=== PATIENT | female | born 1930 | race Caucasian/White ===

== ENCOUNTER 2018-11-28 20:10 | Inpatient (IN) | payer MEDICARE, OTHER ==
[~2018-11-28] VITALS: Ht 157.5 cm; Wt 58.5 kg
--- NOTE | 2018-11-28 20:19 | NUR ---
ED Nurse Note: Pulled out 125mg solumedrol from another patient's pyxis. Charge nurse ramone aware and notified
[2018-11-28] MEDS ORDERED: Solu-MEDROL 125mg Inj ONE (20:20)
[2018-11-28] MEDS ORDERED: Albuterol/Ipratropium 3ml neb ONE (20:20)
--- NOTE | 2018-11-28 20:20 | NUR ---
ED Nurse Note: RT AT BEDSIDE
[2018-11-28 20:25] VITALS: BP 137/116
--- NOTE | 2018-11-28 20:25 | NUR ---
ED Nurse Note: pt was brought in by squad 8 from home due to respiratory distress. a family member from other place called 911 and pt was unresponsive on the scene. 0.8nitro and narcan was given on the scene. spo2 was 85 on the scene and was put on ambubag
[2018-11-28] MEDS: Albuterol/Ipratropium 3ml neb HHN SCH ×3 (20:26→20:52)
[2018-11-28] MEDS ORDERED: Solu-MEDROL 125mg Inj IVP ONE (20:30)
--- NOTE | 2018-11-28 20:30 | NUR ---
ED Nurse Note: BLOOD SPECIMEN AND CULTURE SENT TO LAB
[2018-11-28] MEDS ORDERED: dilTIAZem HCl 25mg/5ml Inj ONE (20:54)
--- NOTE | 2018-11-28 20:57 | NUR ---
ED Nurse Note: RECEIVED VERBAL ORDER PER ERMD OF 10MG CARDIZEM
[2018-11-28 21:03] LABS: ANION GAP 16 mmol/L (5-15); BLOOD UREA NITROGEN 27 mg/dL (7-18); CALCIUM 9.8 MG/DL (8.5-10.1); CARBON DIOXIDE 24 MMOL/L (21-32); CHLORIDE 106 MMOL/L (98-107); CREATININE 0.8 MG/DL (0.55-1.30); POTASSIUM 4.3 MMOL/L (3.5-5.1); SODIUM 145 MMOL/L (136-145)
[2018-11-28 21:07] LABS: BASOPHILS % (AUTO) 0.3 % (0.0-2.0); HEMATOCRIT 44.1 % (37.0-47.0); HEMOGLOBIN 14.2 G/DL (12.0-16.0); LYMPHOCYTES % (AUTO) 14.3 % (20.0-45.0); MEAN CORPUSCULAR VOLUME 93 FL (80-99); NEUTROPHILS % (AUTO) 77.5 % (45.0-75.0); PLATELET COUNT 340 K/UL (150-450); RED BLOOD COUNT 4.72 M/UL (4.20-5.40); RED CELL DISTRIBUTION WIDTH 14.2 % (11.6-14.8); WHITE BLOOD COUNT 14.9 K/UL (4.8-10.8)
[2018-11-28] MEDS ORDERED: dilTIAZem HCl 25mg/5ml Inj IVP ONE (21:15)
[2018-11-28 21:27] LABS: ALANINE AMINOTRANSFERASE 8 U/L (12-78); ALBUMIN 3.4 G/DL (3.4-5.0); ALBUMIN/GLOBULIN RATIO 0.7 (1.0-2.7); ALKALINE PHOSPHATASE 98 U/L (46-116); ASPARTATE AMINO TRANSFERASE 18 U/L (15-37); BILIRUBIN,TOTAL 0.6 MG/DL (0.2-1.0); CKMB 2.5 NG/ML (0.0-3.6); CREATINE KINASE 70 U/L (26-308)
--- NOTE | 2018-11-28 21:41 | Emergency Room Report ---
History of Present Illness General Chief Complaint: Dyspnea/Respdistress Source: Family Member, EMS Present Illness HPI An 87-year-old female brought in by EMS after increased difficulty with breathing. Patient was noted to have prior history of dementia and is chronically debilitated from this. Patient was noted to have baseline weakness to all extremities and normally has to be turned by caregiver. Patient reportedly had become increasingly shallow with respirations and had increased difficulty with breathing. Patient had prior history of chronic venous stasis ulcers to her lower extremities and had been getting treatment with Unna boot. She had been noted to have increased respiratory distress and was started on supplemental oxygen by paramedics. Patient is normally followed by Dr. Thorpe. Allergies: Coded Allergies: No Known Allergies (Unverified , 11/28/18) Patient History Last Menstrual Period: menopause Now: No Reviewed Nursing Documentation: PMH: Agreed; PSxH: Agreed Nursing Documentation-PMH Hx Cardiac Problems: Yes Hx Hypertension: Yes Hx Diabetes: Yes Physical Exam Vital Signs Date Time Temp Pulse Resp B/P (MAP) Pulse Ox O2 Delivery O2 Flow Rate FiO2 11/28/18 20:15 135 29 173/116 94 Ambu-Bag 11/28/18 20:20 100 11/28/18 20:25 14.0 General Appearance: lethargic, thin, Chronically Ill Eyes: bilateral eye PERRL ENT: dry mucus membranes Neck: limited range of motion Respiratory: accessory muscle use, wheezing Cardiovascular #1: tachycardia, edema Gastrointestinal: normal inspection, soft Genitourinary: normal inspection Musculoskeletal: decreased range of motion Neurologic: motor weakness, other - poor alertness nonverbal Psychiatric: depressed affect Skin: normal color, other - bilateral leg ulcers Procedures Critical Care Time Critical Care Time Patient had a critical medical condition which untreated could potentially result in life or limb threatening injury. Total critical care time excluding procedures approximately 45 minutes. Medical Decision Making Diagnostic Impression: Primary Impression: Dyspnea Additional Impressions: Respiratory failure Venous stasis ulcer Dementia ER Course Patient presented for shortness of breath. Differential included but was not limited to anemia, pneumonia, pneumothorax, myocardial infarction, pericardial effusion, congestive heart failure, acidosis because of complexity of patient's case laboratory testing and imaging studies were ordered.. Chest x-ray 1 view interpreted by me showed normal cardiac size with bilateral infiltrate and vascular congestion. Patient was started on breathing treatments and given IV steroids. She was started on BiPAP. Patient was noted to have elevated white blood count. Dr. Stein was contacted for inpatient management due to covering physician for Dr. Thorpe Labs Test 11/28/18 20:30 White Blood Count 14.9 K/UL (4.8-10.8) Red Blood Count 4.72 M/UL (4.20-5.40) Hemoglobin 14.2 G/DL (12.0-16.0) Hematocrit 44.1 % (37.0-47.0) Mean Corpuscular Volume 93 FL (80-99) Mean Corpuscular Hemoglobin 30.1 PG (27.0-31.0) Mean Corpuscular Hemoglobin Concent 32.3 G/DL (32.0-36.0) Red Cell Distribution Width 14.2 % (11.6-14.8) Platelet Count 340 K/UL (150-450) Mean Platelet Volume 5.4 FL (6.5-10.1) Neutrophils (%) (Auto) 77.5 % (45.0-75.0) Lymphocytes (%) (Auto) 14.3 % (20.0-45.0) Monocytes (%) (Auto) 8.0 % (1.0-10.0) Eosinophils (%) (Auto) 0.0 % (0.0-3.0) Basophils (%) (Auto) 0.3 % (0.0-2.0) Sodium Level 145 MMOL/L (136-145) Potassium Level 4.3 MMOL/L (3.5-5.1) Chloride Level 106 MMOL/L (98-107) Carbon Dioxide Level 24 MMOL/L (21-32) Anion Gap 16 mmol/L (5-15) Blood Urea Nitrogen 27 mg/dL (7-18) Creatinine 0.8 MG/DL (0.55-1.30) Estimat Glomerular Filtration Rate mL/min (>60) Glucose Level 267 MG/DL (74-106) Lactic Acid Level 2.90 mmol/L (0.4-2.0) Calcium Level 9.8 MG/DL (8.5-10.1) Total Bilirubin 0.6 MG/DL (0.2-1.0) Aspartate Amino Transf (AST/SGOT) 18 U/L (15-37) Alanine Aminotransferase (ALT/SGPT) 8 U/L (12-78) Alkaline Phosphatase 98 U/L (46-116) Total Creatine Kinase 70 U/L (26-308) Creatine Kinase MB 2.5 NG/ML (0.0-3.6) Creatine Kinase MB Relative Index 3.5 Troponin I 0.059 ng/mL (0.000-0.056) Pro-B-Type Natriuretic Peptide 1974 pg/mL (0-125) Total Protein 8.3 G/DL (6.4-8.2) Albumin 3.4 G/DL (3.4-5.0) Globulin 4.9 g/dL Albumin/Globulin Ratio 0.7 (1.0-2.7) EKG Diagnostic Results Rate: tachycardiac Rhythm: other - afib rvr ST Segments: no acute changes ASA given to the pt in ED: No Rhythm Strip Diag. Results EP Interpretation: yes Rhythm: no PVC's, no ectopy Last Vital Signs Date Time Temp Pulse Resp B/P (MAP) Pulse Ox O2 Delivery O2 Flow Rate FiO2 11/28/18 21:03 152 137/116 11/28/18 20:52 21 95 Bi-pap 100 11/28/18 20:25 14.0 Status: unchanged Disposition: ADMITTED INPATIENT Condition: Critical Prudencio Clark MD Nov 28, 2018 21:41
[2018-11-28] MEDS ORDERED: cefTRIAXone 1 GM in NS 55 ML IVPB ONE (22:00)
[2018-11-28 22:10] LABS: APPEARANCE,URINE CLEAR; BILIRUBIN, URINE NEGATIVE (NEGATIVE); COLOR,URINE PALE YELLOW; GLUCOSE, URINE (UA) 4+ (NEGATIVE); KETONES,URINE 3+ (NEGATIVE); LEUKOCYTE ESTERASE ,URINE 2+ (NEGATIVE); NITRITE,URINE NEGATIVE (NEGATIVE); PH,URINE 5 (4.5-8.0); PROTEIN,URINE 2+ (NEGATIVE); UROBILINOGEN,URINE NORMAL MG/DL (0.0-1.0)
[2018-11-28] MEDS ORDERED: Digoxin 0.5mg/2ml Inj IVP ONE (22:15)
--- NOTE | 2018-11-28 22:20 | NUR ---
ED Nurse Note: INFORMED ERMD BP WAS 99/73 WITH HEART OF 135 PER ERMD INTIATE DIGOXIN LOADING DOSE PRIOR TO CARDIZEM. CARDIZEM WAS THEN STARTED AT 2220. BP 151/85 WITH HEART OF 132
[2018-11-28 22:35] VITALS: BP 119/66
--- NOTE | 2018-11-28 22:35 | NUR ---
ED Nurse Note: AFTER 15 MIN PT BP 119/66 WITH HEART RATE OF 131. TITRATED CARDIZEM PER PROTOCOL. ERMD AWARE.
[2018-11-28] MEDS ORDERED: Enalaprilat 2.5mg/2ml Inj IV PRN (22:45)
[2018-11-28] MEDS ORDERED: Albuterol/Ipratropium 3ml neb HHN PRN (22:45)
[2018-11-28] MEDS ORDERED: Metoprolol 5mg/5ml Inj IVP PRN (22:45)
[2018-11-28] MEDS ORDERED: Nitroglycerin Subl 0.4mg tab SL PRN (22:45)
[2018-11-28] MEDS ORDERED: Morphine Sulfate 2mg/ml Inj(IV/IM USE ONLY) IVP PRN (22:45)
[2018-11-28] MEDS ORDERED: dilTIAZem HCl 25mg/5ml Inj IV PRN (22:45)
--- NOTE | 2018-11-28 22:50 | NUR ---
ED Nurse Note: PT BP 121/72 HR 130, CARDIZEM TITRATED, ERMD AWARE.
--- NOTE | 2018-11-28 23:05 | NUR ---
ED Nurse Note: ER WCP UPLOADED
--- NOTE | 2018-11-28 23:21 | NUR ---
ED Nurse Note: PT BP AT 126/68 WITH HR OF 97, MAINTAINING CARDIZEM, ERMD AWARE
--- NOTE | 2018-11-28 23:27 | NUR ---
ED Nurse Note: INFORMED ERMD THAT LACTIC ACID REFLEX CAME BACK 3.80. AWAITING FURTHER ORDERS. WILL CONTINUE TO MONITOR PT.
--- NOTE | 2018-11-28 23:50 | NUR ---
ED Nurse Note: PT WAS TRANSFERRED TO ICU WITH RD ARRIAZA AND CHLOÉ JACKSON. PT WAS ACCOMPANIED WITH [employer] APPLICATOR. PT CURRENTLY ON CARDIZEM DRIP PT IS AOX0 PT ON NON REBREATHER. PT VSS STABLE AT THE MOMENT
--- NOTE | 2018-11-28 23:54 | NUR ---
NURSE NOTES: RECEIVED PATENT VIA GURNEY FROM SOFIYAER NURSE. [id number] -FEMALE ADMITTED UNDER SERVICES BY DR. AMIN. PATIENT LETHARGIC, NO ANSWERING TO QUESTION AT THIS TIME, NOTED MOANING SOUND, RESPIRATION REGULAR ON BIPAP I/E 20/5, RATE 14, FIO2 70%, O2 SATURATION OVER 97% NOTED, ABDOMEN FLAT, SOFT, NO BOWEL MOVEMENT STATUS, PERIPHERAL LINE TO RIGHT AC 20G INTACT AND PATENT, ON CARDIZEM DRIP 7.5MG/HR, OPENED ULCER WITHOUT DISCHARGE TO BOTH LOWER LEGS STATUS, MADE LOWER BED AND PROVIDED CALL LIGHT WITHIN REACH, WILL CONTINUE TO MONITOR.
[2018-11-29] VITALS (26 sets, daily range): BP systolic 91–157; BP diastolic 54–103
--- NOTE | 2018-11-29 01:00 | NUR ---
NURSE NOTES: PATIENT ASLEEP STATUS, HEART RATE 90'S/MIN SINUS RHYTHM NOTED, NO PAIN OR SOB NOTED AT THIS TIME.
--- NOTE | 2018-11-29 01:05 | NUR ---
RESPIRATORY NOTE: Received pt in ICU from ED on BiPAP 20/5, backup rate 14, 70%.Pt on a Facial mask, skin intact, no redness/breakdowns noted. Foam tape applied on pt's nosebridge/cheeks/chin to prevent any mask irritations. Pt asleep/disoriented. B/S margoth. crackles, nonproductive cough. BiPAP plugged into red outlet. Pt comfortable in current settings, in no apparent distress at this time. Will continue to monitor pt.
--- NOTE | 2018-11-29 01:56 | NUR ---
NURSE NOTES: PATIENT AWOKE, DENIED PAIN AT THIS TIME, WILL CONTINUE TO MONITOR.
--- NOTE | 2018-11-29 03:50 | NUR ---
NURSE NOTES: MORNING CARE WAS DONE, PURE WICK EXTERNAL CATH STATUS, YELLOW URINE OUTED.
--- NOTE | 2018-11-29 05:05 | NUR ---
NURSE NOTES: CHANGED BIPAP SETTING FIO2 60% BY RT AT 0500AM, NO SOB NOTED, O2 SATURATION 100% NOTED, WILL CONTINUE TO MONITOR.
[2018-11-29 05:42] LABS: HEMATOCRIT 44.4 % (37.0-47.0); HEMOGLOBIN 14.1 G/DL (12.0-16.0); MEAN CORPUSCULAR VOLUME 94 FL (80-99); PLATELET COUNT 319 K/UL (150-450); RED BLOOD COUNT 4.72 M/UL (4.20-5.40); RED CELL DISTRIBUTION WIDTH 14.3 % (11.6-14.8); WHITE BLOOD COUNT 7.8 K/UL (4.8-10.8)
[2018-11-29 05:53] LABS: INR 1.3 (0.9-1.1)
[2018-11-29 06:19] LABS: ALANINE AMINOTRANSFERASE 11 U/L (12-78); ALBUMIN 3.1 G/DL (3.4-5.0); ALBUMIN/GLOBULIN RATIO 0.7 (1.0-2.7); ALKALINE PHOSPHATASE 86 U/L (46-116); ANION GAP 21 mmol/L (5-15); ASPARTATE AMINO TRANSFERASE 15 U/L (15-37); BILIRUBIN,TOTAL 0.6 MG/DL (0.2-1.0); BLOOD UREA NITROGEN 29 mg/dL (7-18); CALCIUM 10.2 MG/DL (8.5-10.1); CARBON DIOXIDE 21 MMOL/L (21-32); CHLORIDE 106 MMOL/L (98-107); CHOLESTEROL 176 MG/DL (< 200); CREATININE 0.8 MG/DL (0.55-1.30); HDL CHOLESTEROL 63 MG/DL (40-60); POTASSIUM 3.7 MMOL/L (3.5-5.1); SODIUM 148 MMOL/L (136-145); TRIGLYCERIDES 64 MG/DL (30-150)
--- NOTE | 2018-11-29 06:40 | NUR ---
NURSE NOTES: NO PAIN OR DISTRESS NOTED AT THIS SHIFT.
--- NOTE | 2018-11-29 07:27 | NUR ---
HAND-OFF: Report given to RD RWOELL.
--- NOTE | 2018-11-29 07:28 | NUR ---
RESPIRATORY NOTE: pt on bipap with settings of 20/5, fio2 60% with HR and saturation WNL. pt is in no apparent resp distress at this time and is using a partial face mask with no redness or skin breakdown visible around facial or neck area. bipap is plugged into the red outlet with alarms set and audible. will cont to monitor.
--- NOTE | 2018-11-29 07:40 | NUR ---
NURSE NOTES: Received the patient from RD Tejeda. Patient is opens eyes to shaking, lethargic, unable to follow commands. Patient on Bipap 20/5, rate 14, FIO2 60%, O2 sat 99%. SR-ST with HR 90-100s noted. No acute distress noted. wound dressings on bilateral legs intact, clean and dry. External cath intact, draining yellow urine. Right AC 20G intact. Bed in lowest position, locked, side rails upx3. Bed alarms on. call light within reach. Will continue to monitor.
--- NOTE | 2018-11-29 08:08 | NUR ---
RESPIRATORY NOTE: placed pt on VM 40%. RN, notified
--- NOTE | 2018-11-29 08:53 | NUR ---
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 ALOC VS: BP 173/116, P 153, T 98.2, RR 35, SpO2 94 on Bi-pap 14.0 L FiO2 100 WBC 14.9, LACTIC ACID 3.80, Na 148, BUN 29, Glucose 311, Ca 10.2, Urine Bacteria MODERATE, Urine Ketones 3+ IS:SOLU-MEDROL 125mg IVP ALBUTEROL 3ml HHN CARDIZEM 10mg IVP LASIX 20mg IV DILTIAZEM /D5 125ml IV CEFTRIAXONE 55ml IVPB DIGOXIN 0.5mg IVP ADMITTED TO ICU DC PLAN: TO BE DETERMINED ON CARE NEEDED WHEN DC
[2018-11-29] MEDS: Pantoprazole Inj IVP SCH (09:17)
[2018-11-29] MEDS: Digoxin 0.5mg/2ml Inj IVP SCH (09:18)
[2018-11-29] MEDS ORDERED: METOPROLOL SUCC25 MG ORAL (09:57)
[2018-11-29] MEDS ORDERED: TRAZODONE HCL300 MG ORAL (09:57)
[2018-11-29] MEDS ORDERED: DIGOXIN125 MCG ORAL (09:57)
[2018-11-29] MEDS ORDERED: TRADJENTA5 MG PO (09:57)
[2018-11-29] MEDS ORDERED: NAMZARIC 28 MG1 EACH PO (09:57)
[2018-11-29] MEDS ORDERED: INVOKANA100 MG PO (09:57)
[2018-11-29] MEDS ORDERED: METFORMIN HCL850 M1 ORAL (09:57)
[2018-11-29] MEDS ORDERED: ASPIRIN-LOW81 MG ORAL (09:57)
--- NOTE | 2018-11-29 10:02 | Diagnostic Imaging Report ---
Indication: Shortness of breath Technique: One view of the chest Comparison: 11/28/2018 Findings: There is slightly increased dense left perihilar consolidation. There is suggestion of developing patchy parenchymal opacities at the right mid and lower lung. Generalized interstitial prominence and central bronchial wall thickening persist. Impression: Worsening left lung infiltrate, likely pneumonia Suspect developing patchy right basilar infiltrates
--- NOTE | 2018-11-29 10:12 | Consultation ---
History of Present Illness General Date patient seen: Nov 29, 2018 Chief Complaint: Dyspnea/Respdistress Present Illness HPI 87 year old female with hx of Afib, dementia, bed bound brought in by EMS with CC of difficulty with breathing. Patient reportedly had increasingly shallow respirations. Her systolic Blood pressure was 180. Pt was in respiratory failure on arrival to ER and was put on BIPAP. She had rapid afib and received IV digoxin and was started on Cardizem drip. Allergies: Coded Allergies: No Known Allergies (Unverified , 11/28/18) Medication History Scheduled Aspirin (Aspirin EC), 81 MG ORAL EVERY OTHER DAY, (Reported) Canagliflozin (Invokana), 100 MG PO DAILY, (Reported) Digoxin* (Digoxin*), 125 MCG ORAL DAILY, (Reported) Linagliptin (Tradjenta), 2.5 MG PO DAILY, (Reported) Metformin Hcl* (Metformin Hcl*), 850 MG ORAL DAILY, (Reported) Metoprolol Succinate* (Metoprolol Succinate*), 25 MG ORAL DAILY, (Reported) Trazodone Hcl (Trazodone Hcl), 100 MG ORAL BEDTIME, (Reported) Miscellaneous Medications Memantine HCl/Donepezil HCl (Namzaric 28 mg-10 mg Capsule), 1 EACH PO, (Reported ) Patient History Healthcare decision maker Resuscitation status Full Code Advanced Directive on File Past Medical/Surgical History Past Medical/Surgical History: (1) Alzheimer's dementia (2) Debility (3) Severe protein-calorie malnutrition Review of Systems All Other Systems: negative except mentioned in HPI Physical Exam General Appearance: cachetic Lines, tubes and drains: peripheral HEENT: normocephalic, anicteric Neck: non-tender, normal alignment Respiratory/Chest: chest wall non-tender, rhonchi - left, rhonchi - right Cardiovascular/Chest: normal peripheral pulses, normal rate Abdomen: normal bowel sounds, non tender Extremities: normal range of motion, normal capillary refill Skin Exam: normal pigmentation, palled, other - stasis ulcers in lower extremities Last 24 Hour Vital Signs Date Time Temp Pulse Resp B/P (MAP) Pulse Ox O2 Delivery O2 Flow Rate FiO2 11/29/18 09:18 104 11/29/18 08:00 97.6 105 18 145/88 (107) 100 11/29/18 08:00 106 11/29/18 08:00 70 11/29/18 08:00 Bi-pap 11/29/18 07:27 99 21 100 Facial 60 11/29/18 07:00 99 16 107/78 (88) 100 11/29/18 06:00 99 25 113/70 (84) 100 11/29/18 05:08 99 19 100 Facial 60 11/29/18 05:00 99 25 91/60 (70) 100 11/29/18 04:00 70 11/29/18 04:00 98.3 97 20 113/68 (83) 100 11/29/18 04:00 Bi-pap 11/29/18 03:59 94 11/29/18 03:01 97 20 100 Facial 70 11/29/18 03:00 97 20 112/65 (81) 100 11/29/18 02:00 95 21 108/67 (81) 100 11/29/18 01:30 96 18 119/78 (92) 100 11/29/18 01:03 95 18 100 Facial 70 11/29/18 01:00 95 18 124/79 (94) 100 11/29/18 00:30 95 17 113/67 (82) 100 11/29/18 00:00 97.6 97 22 133/103 (113) 97 11/29/18 00:00 Bi-pap 11/28/18 23:54 Bi-pap 11/28/18 23:54 100 11/28/18 23:54 70 11/28/18 23:50 98.3 97 20 127/94 97 Bi-pap 14.0 100 11/28/18 23:30 97 19 98 Facial 70 11/28/18 22:35 98.2 131 25 119/66 97 14.0 100 11/28/18 22:14 133 11/28/18 22:08 133 137/116 11/28/18 21:48 133 35 94 Facial 100 11/28/18 21:40 133 25 93 Bi-pap 100 11/28/18 21:03 152 137/116 11/28/18 20:52 152 21 95 Bi-pap 100 11/28/18 20:45 152 21 95 Bi-pap 100 11/28/18 20:34 151 27 94 Bi-pap 100 11/28/18 20:32 156 27 94 Bi-pap 100 11/28/18 20:25 153 35 137/116 94 Bi-pap 14.0 100 11/28/18 20:25 153 35 Bi-pap 14.0 100 11/28/18 20:23 137 31 96 Bi-pap 100 11/28/18 20:22 137 31 Bi-pap 100 11/28/18 20:20 153 31 95 Facial 100 11/28/18 20:15 135 29 173/116 94 Ambu-Bag Intake and Output 11/28/18 11/29/18 19:00 07:00 Intake Total 55 ml Output Total 300 ml Balance -245 ml Intake Oral 0 ml IV Total 55 ml Output Urine Total 300 ml # Voids 1 # Bowel Movements 1 Laboratory Tests Test 11/28/18 20:21 11/28/18 20:30 11/28/18 21:50 11/28/18 22:25 Arterial Blood pH 7.320 (7.350-7.450) Arterial Blood Partial Pressure CO2 41.7 mmHg (35.0-45.0) Arterial Blood Partial Pressure O2 131.8 mmHg (75.0-100.0) H Arterial Blood HCO3 21.0 mmol/L (22.0-26.0) L Arterial Blood Oxygen Saturation 98.1 % (95-100) Arterial Blood Base Excess -4.8 (-2-2) L Meir Test Positive White Blood Count 14.9 K/UL (4.8-10.8) H Red Blood Count 4.72 M/UL (4.20-5.40) Hemoglobin 14.2 G/DL (12.0-16.0) Hematocrit 44.1 % (37.0-47.0) Mean Corpuscular Volume 93 FL (80-99) Mean Corpuscular Hemoglobin 30.1 PG (27.0-31.0) Mean Corpuscular Hemoglobin Concent 32.3 G/DL (32.0-36.0) Red Cell Distribution Width 14.2 % (11.6-14.8) Platelet Count 340 K/UL (150-450) Mean Platelet Volume 5.4 FL (6.5-10.1) L Neutrophils (%) (Auto) 77.5 % (45.0-75.0) H Lymphocytes (%) (Auto) 14.3 % (20.0-45.0) L Monocytes (%) (Auto) 8.0 % (1.0-10.0) Eosinophils (%) (Auto) 0.0 % (0.0-3.0) Basophils (%) (Auto) 0.3 % (0.0-2.0) Sodium Level 145 MMOL/L (136-145) Potassium Level 4.3 MMOL/L (3.5-5.1) Chloride Level 106 MMOL/L (98-107) Carbon Dioxide Level 24 MMOL/L (21-32) Anion Gap 16 mmol/L (5-15) H Blood Urea Nitrogen 27 mg/dL (7-18) H Creatinine 0.8 MG/DL (0.55-1.30) Estimat Glomerular Filtration Rate mL/min (>60) Glucose Level 267 MG/DL (74-106) H Lactic Acid Level 2.90 mmol/L (0.4-2.0) H 3.80 mmol/L (0.66-2.22) H Calcium Level 9.8 MG/DL (8.5-10.1) Total Bilirubin 0.6 MG/DL (0.2-1.0) Aspartate Amino Transf (AST/SGOT) 18 U/L (15-37) Alanine Aminotransferase (ALT/SGPT) 8 U/L (12-78) L Alkaline Phosphatase 98 U/L (46-116) Total Creatine Kinase 70 U/L (26-308) Creatine Kinase MB 2.5 NG/ML (0.0-3.6) Creatine Kinase MB Relative Index 3.5 Troponin I 0.059 ng/mL (0.000-0.056) Pro-B-Type Natriuretic Peptide 1974 pg/mL (0-125) H Total Protein 8.3 G/DL (6.4-8.2) H Albumin 3.4 G/DL (3.4-5.0) Globulin 4.9 g/dL Albumin/Globulin Ratio 0.7 (1.0-2.7) L Urine Color Pale yellow Urine Appearance Clear Urine pH 5 (4.5-8.0) Urine Specific Glidden 1.015 (1.005-1.035) Urine Protein 2+ (NEGATIVE) H Urine Glucose (UA) 4+ (NEGATIVE) H Urine Ketones 3+ (NEGATIVE) H Urine Blood 2+ (NEGATIVE) H Urine Nitrite Negative (NEGATIVE) Urine Bilirubin Negative (NEGATIVE) Urine Urobilinogen Normal MG/DL (0.0-1.0) Urine Leukocyte Esterase 2+ (NEGATIVE) H Urine RBC 2-4 /HPF (0 - 2) H Urine WBC 5-10 /HPF (0 - 2) H Urine Squamous Epithelial Cells Few /LPF (NONE/OCC) Urine Bacteria Moderate /HPF (NONE) H Urine Yeast Few /HPF (NONE) H Test 11/29/18 03:50 11/29/18 06:44 White Blood Count 7.8 K/UL (4.8-10.8) Red Blood Count 4.72 M/UL (4.20-5.40) Hemoglobin 14.1 G/DL (12.0-16.0) Hematocrit 44.4 % (37.0-47.0) Mean Corpuscular Volume 94 FL (80-99) Mean Corpuscular Hemoglobin 29.9 PG (27.0-31.0) Mean Corpuscular Hemoglobin Concent 31.7 G/DL (32.0-36.0) L Red Cell Distribution Width 14.3 % (11.6-14.8) Platelet Count 319 K/UL (150-450) Mean Platelet Volume 5.9 FL (6.5-10.1) L Neutrophils (%) (Auto) % (45.0-75.0) Lymphocytes (%) (Auto) % (20.0-45.0) Monocytes (%) (Auto) % (1.0-10.0) Eosinophils (%) (Auto) % (0.0-3.0) Basophils (%) (Auto) % (0.0-2.0) Prothrombin Time 13.5 SEC (9.30-11.50) H Prothromb Time International Ratio 1.3 (0.9-1.1) H Activated Partial Thromboplast Time 27 SEC (23-33) Sodium Level 148 MMOL/L (136-145) H Potassium Level 3.7 MMOL/L (3.5-5.1) Chloride Level 106 MMOL/L (98-107) Carbon Dioxide Level 21 MMOL/L (21-32) Anion Gap 21 mmol/L (5-15) H Blood Urea Nitrogen 29 mg/dL (7-18) H Creatinine 0.8 MG/DL (0.55-1.30) Estimat Glomerular Filtration Rate mL/min (>60) Glucose Level 311 MG/DL (74-106) H Calcium Level 10.2 MG/DL (8.5-10.1) H Total Bilirubin 0.6 MG/DL (0.2-1.0) Aspartate Amino Transf (AST/SGOT) 15 U/L (15-37) Alanine Aminotransferase (ALT/SGPT) 11 U/L (12-78) L Alkaline Phosphatase 86 U/L (46-116) Troponin I 0.070 ng/mL (0.000-0.056) C-Reactive Protein, Quantitative 33.3 mg/dL (0.00-0.90) H Pro-B-Type Natriuretic Peptide 3266 pg/mL (0-125) H Total Protein 7.7 G/DL (6.4-8.2) Albumin 3.1 G/DL (3.4-5.0) L Globulin 4.6 g/dL Albumin/Globulin Ratio 0.7 (1.0-2.7) L Triglycerides Level 64 MG/DL (30-150) Cholesterol Level 176 MG/DL (< 200) LDL Cholesterol 88 mg/dL (<100) HDL Cholesterol 63 MG/DL (40-60) H Cholesterol/HDL Ratio 2.8 (3.3-4.4) L Thyroid Stimulating Hormone (TSH) 0.700 uiU/mL (0.358-3.740) Lactic Acid Level 2.40 mmol/L (0.4-2.0) H Microbiology Date/Time Source Procedure Growth Status 11/28/18 20:58 Nasal Nares Influenza Types A,B Antigen (OG) - Final Complete 11/28/18 20:58 Rectum Received Height (Feet): 5 Height (Inches): 2.00 Weight (Pounds): 124 Medications Current Medications Medications (Trade) Dose Ordered Sig/Harshil Route PRN Reason Start Time Stop Time Status Last Admin Dose Admin Acetaminophen (Tylenol) 650 mg Q4H PRN ORAL FEVER 11/28/18 22:45 12/28/18 22:44 Albuterol/ Ipratropium (Albuterol/ Ipratropium) 3 ml Q4H PRN HHN Shortness of Breath 11/28/18 22:45 12/03/18 22:44 Digoxin (Lanoxin) 0.25 mg DAILY IVP 11/29/18 09:00 12/29/18 08:59 11/29/18 09:18 Diltiazem HCl (Cardizem) 10 mg Q1H PRN IV heart rate more than 120, 11/28/18 22:45 12/28/18 22:44 Enalaprilat (Vasotec) 2.5 mg Q6H PRN IV sbp more than 160 11/28/18 22:45 12/28/18 22:44 Metoprolol Tartrate (Lopressor) 5 mg Q1H PRN IVP heart rate more than 140 11/28/18 22:45 12/28/18 22:44 Morphine Sulfate (Morphine Sulfate) 2 mg Q4H PRN IVP severe Pain (Pain Scale 7-10) 11/28/18 22:45 12/05/18 22:44 Nitroglycerin (Ntg) 0.4 mg Q5M PRN SL Prn Chest Pain 11/28/18 22:45 12/28/18 22:44 Ondansetron HCl (Zofran) 4 mg Q6H PRN IVP Nausea & Vomiting 11/28/18 22:45 12/28/18 22:44 Pantoprazole (Protonix) 40 mg DAILY IVP 11/29/18 09:00 12/29/18 08:59 11/29/18 09:17 Temazepam (Restoril) 15 mg HSPRN PRN ORAL Insomnia 11/28/18 22:45 12/05/18 22:44 Assessment/Plan Problem List: (1) Acute respiratory failure ICD Codes: J96.00 - Acute respiratory failure, unspecified whether with hypoxia or hypercapnia SNOMED: 68176761 (2) Hypertensive emergency ICD Codes: I16.1 - Hypertensive emergency SNOMED: 511956283859446 (3) Rapid atrial fibrillation ICD Codes: I48.91 - Unspecified atrial fibrillation SNOMED: 470632275 (4) Severe protein-calorie malnutrition ICD Codes: E43 - Unspecified severe protein-calorie malnutrition SNOMED: 633783784, 791505503, 670159370 (5) At high risk for aspiration ICD Codes: Z91.89 - Other specified personal risk factors, not elsewhere classified SNOMED: 731998836 (6) Dementia ICD Codes: F03.90 - Unspecified dementia without behavioral disturbance SNOMED: 62112115 (7) Alzheimer's dementia ICD Codes: G30.9 - Alzheimer's disease, unspecified; F02.80 - Dementia in other diseases classified elsewhere without behavioral disturbance SNOMED: 63607762 (8) Venous stasis ulcer ICD Codes: I83.009 - Varicose veins of unspecified lower extremity with ulcer of unspecified site; L97.909 - Non-pressure chronic ulcer of unspecified part of unspecified lower leg with unspecified severity SNOMED: 114766973, 97413517, 99776509 (9) Debility ICD Codes: R53.81 - Other malaise SNOMED: 88602622 Assessment/Plan NPO titrate bipap or venturi mask check cXR an BNP in am check dig Level echocardiogram swallow study dvt prophylaxis wound care Corey Salmon MD Nov 29, 2018 10:12
[2018-11-29] MEDS ORDERED: Dextrose 50% 25ml Syringe IV PRN (10:15)
--- NOTE | 2018-11-29 10:15 | NUR ---
NURSE NOTES: Dr. Salmon in facility to see the patient . Patient is asleep, easily arousable. Family at bedside. Keep NPO until ST eval. plan of care discussed with daughter, chip.
--- NOTE | 2018-11-29 10:28 | NUR ---
RADIOLOGY DEPT., CHEST X-RAY DONE.-P.DYE
--- NOTE | 2018-11-29 10:32 | Diagnostic Imaging Report ---
Indication: Shortness of breath Technique: One view of the chest Comparison: none Findings: There is infiltrate in the left perihilar and infrahilar region. The left hemidiaphragm is elevated. There is generalized interstitial prominence, acuity indeterminate. The heart size is normal. Impression: Left perihilar and basilar consolidation, likely pneumonia Acuity indeterminate diffuse interstitial disease bilaterally
[2018-11-29] MEDS: NovoLOG Insulin Flexpen SUBQ SCH ×3 (11:01→21:14)
--- NOTE | 2018-11-29 12:00 | NUR ---
NURSE NOTES: Patient is turned and repositioned. wound dressing intact, clean and dry. Patient is awake, resting in bed. On 2L O2 via NC. No acute distress noted.
--- NOTE | 2018-11-29 13:19 | History & Physical ---
History and Physical History & Physicial Dictated for Int Med-Dr Stein no. [id number]. Bhanu Valentine MD Nov 29, 2018 13:19
--- NOTE | 2018-11-29 14:00 | NUR ---
NURSE NOTES: patient resting in bed with eyes closed. No acute distress noted. speech therapist at bedside for ST kinney.
--- NOTE | 2018-11-29 14:55 | NUR ---
NURSE NOTES: Notified Dr. Salmon that pt did not pass swallow eval per ST. Okay to start IVF.
[2018-11-29] MEDS: D5 1/2NS 1,000 ML IV SCH (15:07)
--- NOTE | 2018-11-29 15:15 | NUR ---
NURSE NOTES: Patient seen by wound care nurse and Dr. Campbell. Dressings changed. No new orders at this time. Air mattress ordered.
--- NOTE | 2018-11-29 15:35 | NUR ---
NURSE NOTES:WOUND CARE NOTES:Pt presented on admission with dry ulcers R and L lower ext. On lateral RLE small dry eschar noted (L)0.5cm x (W)0.4cm.Inferior but in close proximity second linear shaped ulcer that is loyda pink but dry .Edges adherent to base of wound (L)5.5cm x (W)0.9cm. No edema,erythema or elevation in skin temp periwound. Dry peeling skin dorsal aspect of R foot. Stable dry brown eschar noted to medial R heel (L)1.5cm x (W)1cm.No fluctuance erythema or induration periwound. Resolving linear shaped ulcer medial LLE .Base of is pink with small dry brown eschar medially.NO erythema edema or elevation in skin temp at site of wound. L heel is soft,pink but blanchable.Sacrum and all oother pressure points without evidence of skin breakdown. Tx.Plan:Apply Calazime Paste to both lower ext. Cover ulcers and heels with ABD pads .Wrap with Kerlix from base of toes to 1inch below knees. Change every other day and prn. Apply Moisture BArrier to Sacrum.Cover with Optifoam drsg .Change every 3 days and prn. APM/JAY Mattress. Reposition at least every 2hours or as tolerated. Off-Load Heels with Pillow.
--- NOTE | 2018-11-29 16:38 | NUR ---
ST NOTE:BEDSIDE SWALLOW EVAL RECEIVED BEDSIDE SWALLOW EVAL ORDER CHART REVIEWED PRIOR THE EVALUATION. REFERRED BY DR. REED AMEZCUA PT IS 87-YEAR-OLD STATELESS-SPEAKING FEMALE WHO WAS ADMITTED DUE TO RESPIRATORY FAILURE AND REQUIRED BIPAP. DYSPHAGIA RISK FACTORS: ADVANCED AGE, ACUTE RESP FAILURE, DEMENTIA, CARDIAC DISORDERS, HTN, DMII. PER CXR: WORSENING L LUNG INFILTRATE, LIKELY PNA. SUSPECTED DEVELOPING PATCHY R BASILAR INFILTRATE PLOF: PT LIVES HOME. PER PT'S DAUGHTER, PT WAS ON BLEND DIET AT HOME AND EATING WELL BUT NOTED HAS SOME COUGHING DURING MEALS. CURRENTLY, PT IS FULL CODE. PER DAUGHTER, NOT CONSIDER ANY ARTIFICIAL FEEDING, INCLUDING FEEDING TUBES(NO G-TUBE) CURRENT STATUS: PT SEEN AT BEDSIDE IN PM. AWAKE, FOLLOWS SIMPLE DIRECTIONS INCONSISTENTLY, PT WITH NC(2L), OXYGEN LEVEL: 95%, RR: 22 PT'S DAUGHTER IS AT BEDSIDE. ADJUST PT AT UPRIGHT POSITION. GIVEN PO TRIALS: NECTAR THICK LIQUIDS X 2 TSP INITIAL IMPRESSION: PROBABLE MODERATE TO SEVERE OR WORSENED OROPHARYNGEAL DYSPHAGIA MISSING FEW TEETH MODERATELY INCREASED ORAL TRANSIT TIME AND OROPHARYNGEAL TRANSIT TIME REDUCED LARYNGEAL ELEVATION, DELAYED COUGHING WAS NOTED WITH THE 2 PO TRIALS. PT DESATURATED TO 88-89%. GIVEN PT HAS DEMENTIA AND ACUTE RESP FAILURE, PT IS AT HIGH RISK FOR CHRONIC ASPIRATION. DISCUSSED WITH PT'S DAUGHTER RE: BEDSIDE SWALLOW EVAL RESULTS AND RECOMMENDATIONS. EXPLAINED TO THE DAUGHTER THAT PT IS AT HIGH RISK FOR ASPIRATION. PER DAUGHTER, NOT CONSIDER ANY TUBE FEEDING(NGT AND PEG PLACEMENT); AND WOULD LIKE PT TO EAT/DRINK BY MOUTH. RECOMMENDATIONS: 1. DUE TO PT'S OVERALL WEAKNESS AND RESP STATUS, CONTINUE NPO FOR NOW. 2. WILL DISCUSS AND RE-ASSESS PT'S SWALLOWING FUNCTION(PO FOR COMFORT FEEDING) 3. CONSIDER MODIFIED BARIUM SWALLOW STUDY(PER DAUGHTER, DECLINES TO DO IT PEG IS NOT AN OPTION). DR. REED AMEZCUA APPROVED THE MBSS. 4. REFER PT TO SOCIAL SERVICE. 5. SWALLOW TX AND MANAGEMENT. 6. CONSIDER COMFORT FEEDING D/W PT'S DAUGHTER AND RNGUILLERMINA. POSTED NPO SIGN.
--- NOTE | 2018-11-29 17:20 | NUR ---
NURSE NOTES: patient was turned and repositioned. Oral care and allen care provided. Patient resting in bed comfortably. VSS.
--- NOTE | 2018-11-29 19:19 | NUR ---
HAND-OFF: Report given to RD Cerrato.
--- NOTE | 2018-11-29 19:26 | NUR ---
NURSE NOTES: pt orally intubated -vent o2 sat 100 o/o sadated with versed drip at 5mcg/hr open eyes touch but do not follow command IV INFUSING RT FEMORAL TLC DERSSING SITE DRUG AND INTACT ON CLARENCE SOFT WRIST RESTRAINT NON COMPPLAINTS REPOSITION AND SUCTION
--- NOTE | 2018-11-29 19:30 | NUR ---
NURSE NOTES:Received pt appeared fatigue but opened eyes to verbal and tactile stimulation, attempted to follow simple commands but weak, SR on the monitor, bp stable afebrile, on 02 at 2l/nc 02 sat >92%, Purewick to suction with moderate amt of melissa yellow urine. IVF D51/2NS at 35ml/hr infusing well per Rt Ac. site atraumatic. Pt with bilateral lower legs venous stacis wound covered with drsg dry and intact. Will continue to monitor.
[2018-11-29] MEDS: TraZODone 100mg tab ORAL SCH ×2 (21:00→21:05)
--- NOTE | 2018-11-29 21:00 | NUR ---
NURSE NOTES:Oral care and turned to sides for comfort.
--- NOTE | 2018-11-29 21:00 | History and Physical Report ---
DATE OF ADMISSION: 11/28/2018 CHIEF COMPLAINT: The patient is an 87-year-old white female, who presents with a chief complaint of respiratory failure. HISTORY OF PRESENT ILLNESS: The patient herself is unable to contribute much to the history and physical. Much of the history and physical is obtained from the patient's chart. Apparently, the patient has become increasingly short of breath over the last couple of days. EMS was called. The patient is transferred to [facility] for respiratory distress to rule out pneumonia. REVIEW OF SYSTEMS: Unable to assess secondary to the patient's mental status. PAST MEDICAL HISTORY: Significant for, 1. Type 2 diabetes. 2. Hypertension. 3. Atrial fibrillation. 4. Alzheimer's dementia. PAST SURGICAL HISTORY: The patient denies. CURRENT MEDICATIONS: 1. Aspirin 81 mg one tablet p.o. daily. 2. Tradjenta 2.5 mg p.o. daily. 3. Metoprolol 25 mg p.o. daily. 4. Namzaric 28/10 one tablet p.o. daily. 5. Invokana 100 mg p.o. daily. 6. Metformin 850 mg p.o. daily. 7. Digoxin 0.125 mg p.o. daily. 8. Trazodone 100 mg p.o. daily. ALLERGIES: No known drug allergies. SOCIAL HISTORY: The patient is single and lives with her family. The patient denies tobacco or alcohol use. PHYSICAL EXAMINATION: VITAL SIGNS: Temperature 98.1, respirations 22, pulse 116, and blood pressure 145/88. GENERAL: The patient is a thin-appearing frail white female, in no apparent distress. HEENT: Eyes, pupils are equal and responsive to light and accommodation. Extraocular movements are intact. NECK: Supple without lymphadenopathy. CHEST: Decreased breath sounds at bilateral bases. Otherwise, clear to auscultation without wheezes or rales. CARDIOVASCULAR: Tachycardic, regular rate. S1 and S2 are normal without murmurs, rubs, or gallops. ABDOMEN: Soft, nontender, and nondistended. Positive bowel sounds. No evidence of hepatosplenomegaly. Currently, no rebound or guarding noted. EXTREMITIES: Negative for clubbing, cyanosis, or edema. RECTAL/GENITAL: Not performed. NEUROLOGIC: Cranial nerves II through XII are grossly intact without focal deficits. LABORATORY STUDIES: WBC 14.9, hemoglobin 14.2, hematocrit 44.1, and platelets 240,000. Sodium 145, potassium 4.3, chloride 106, CO2 24, BUN 27, creatinine 0.8, and glucose 267. Troponin 0.059. Urinalysis showed 2+ protein, 4+ glucose, 3+ ketones, and 2+ blood with 5 to 10 wbc. Chest x-ray was reported as left perihilar and basilar consolidation consistent with pneumonia. ASSESSMENT: This is an 87-year-old white female. 1. Respiratory failure. 2. Pneumonia. 3. Atrial fibrillation. 4. Diabetes type 2. 5. Hypertension. 6. Alzheimer's dementia. TREATMENT: 1. Pneumonia/respiratory failure. A Pulmonary consultation has been obtained with Dr. Corey Salmon. The patient has been started empirically on ceftriaxone. The patient was previously on BiPAP, however is now, tolerating nasal cannula. 2. Atrial fibrillation. Continue digoxin as above. 3. Diabetes type 2. The patient has been started on NovoLog sliding scale. 4. Hypertension. The patient is currently hypotensive. 5. Alzheimer's dementia. Bhanu Valentine M.D. DR: ELISABET JOB#: [id number] CC:
[2018-11-29] MEDS: Heparin 5000 units/ml inj SUBQ SCH (21:06)
--- NOTE | 2018-11-29 23:55 | NUR ---
NURSE NOTES:Starte new IV g 20 angio to Rt hand with good blood return, and connected maintainance IVF.
[2018-11-30] VITALS (24 sets, daily range): BP systolic 84–176; BP diastolic 47–112
--- NOTE | 2018-11-30 01:00 | NUR ---
NURSE NOTES:Sleeping well at this time with VSS.
--- NOTE | 2018-11-30 03:00 | NUR ---
NURSE NOTES:Pt attempted so many times taking off her 02 and . easily- explained , adviced not to touch her 02.
--- NOTE | 2018-11-30 04:50 | NUR ---
NURSE NOTES: Complete bath with bed changed done.
[2018-11-30 05:47] LABS: BASOPHILS % (AUTO) 0.2 % (0.0-2.0); HEMATOCRIT 44.3 % (37.0-47.0); LYMPHOCYTES % (AUTO) 10.1 % (20.0-45.0); MEAN CORPUSCULAR VOLUME 96 FL (80-99); NEUTROPHILS % (AUTO) 82.7 % (45.0-75.0); PLATELET COUNT 353 K/UL (150-450); RED BLOOD COUNT 4.64 M/UL (4.20-5.40); RED CELL DISTRIBUTION WIDTH 14.3 % (11.6-14.8); WHITE BLOOD COUNT 10.8 K/UL (4.8-10.8)
--- NOTE | 2018-11-30 06:00 | NUR ---
NURSE NOTES:Condition unchanged. Attempted to removed 02 most of the time.
[2018-11-30] MEDS: NovoLOG Insulin Flexpen SUBQ SCH ×4 (06:11→21:03)
[2018-11-30 06:16] LABS: ALANINE AMINOTRANSFERASE 10 U/L (12-78); ALBUMIN/GLOBULIN RATIO 0.6 (1.0-2.7); ALKALINE PHOSPHATASE 84 U/L (46-116); ANION GAP 14 mmol/L (5-15); ASPARTATE AMINO TRANSFERASE 13 U/L (15-37); BILIRUBIN,TOTAL 0.6 MG/DL (0.2-1.0); BLOOD UREA NITROGEN 37 mg/dL (7-18); CALCIUM 10.5 MG/DL (8.5-10.1); CARBON DIOXIDE 27 MMOL/L (21-32); CHLORIDE 110 MMOL/L (98-107); CREATININE 0.8 MG/DL (0.55-1.30); POTASSIUM 3.7 MMOL/L (3.5-5.1); SODIUM 151 MMOL/L (136-145)
--- NOTE | 2018-11-30 07:31 | NUR ---
HAND-OFF: Report given to Olinda.
--- NOTE | 2018-11-30 07:34 | NUR ---
NURSE NOTES: Received report from KAREN. pt flat effect, but opened eyes to verbal and tactile stimulation,weak. SR on the monitor,VSS, afebrile, on 02 at 3L NC 02 sat 100%, Purewick to suction with small amt of yellow urine. IVF D51/2NS @ 35ml/hr infusing via Rt Hand 20G. patent and intact. Pt with bilateral lower extremity venous wounds covered with drsg dry and intact. Will continue to monitor.
[2018-11-30] MEDS: Digoxin 0.5mg/2ml Inj IVP SCH (08:31)
[2018-11-30] MEDS: Pantoprazole Inj IVP SCH (08:32)
--- NOTE | 2018-11-30 08:32 | NUR ---
CHEST X-RAY COMPLETED AT 0713 HRS BY Zaira JIMENEZ.
--- NOTE | 2018-11-30 08:40 | NUR ---
NURSE NOTES: tool radial drill press set up operator here to do CXR.
[2018-11-30] MEDS: Heparin 5000 units/ml inj SUBQ SCH ×2 (08:41→21:02)
[2018-11-30] MEDS ORDERED: Digoxin 0.125mg tab ORAL SCH (09:00)
[2018-11-30] MEDS ORDERED: Metoprolol Succinate XL 25mg tab ORAL SCH (09:00)
--- NOTE | 2018-11-30 09:12 | NUR ---
NURSE NOTES: daughter here to visit pt. pt repositioned. hob>30. speech therapist here to do bedside swallow eval. Vasotec 2ml ivp administered over 5min for bp 168/107. will continue to monitor pt closely.
--- NOTE | 2018-11-30 09:45 | NUR ---
NURSE NOTES: MD Salmon here to see pt.
--- NOTE | 2018-11-30 09:59 | Pulmonolgy Critical Care Note ---
Critical Care - Asmt/Plan Problems: (1) Acute respiratory failure (2) Hypertensive emergency (3) Rapid atrial fibrillation (4) Alzheimer's dementia (5) Debility (6) Severe protein-calorie malnutrition (7) At high risk for aspiration (8) Dementia Respiratory: monitor respiratory rate, adjust FIO2, CXR Cardiac: continue to monitor HR/BP, other - start beta renny po Renal: F/U I&O, keep IV fluid Infectious Disease: check cultures Gastrointestinal: other - swallow study noted. pt high risk for aspiration, Endocrine: monitor blood sugar Hematologic: monitor H/H, transfuse if hgb<8.5 Neurologic: PRN Ativan, keep patient comfortable Affect: PRN ativan Prophylaxis: Protonix Disposition: keep in ICU Notes Reviewed: heel seat sander Discussed with: nurses, consultants, continuous pillowcase cutterprocurement manager - Objective Last 24 Hour Vital Signs Date Time Temp Pulse Resp B/P (MAP) Pulse Ox O2 Delivery O2 Flow Rate FiO2 11/30/18 08:57 Nasal Cannula 2.0 28 11/30/18 08:57 100 Nasal Cannula 2.0 28 11/30/18 08:32 168/104 11/30/18 08:31 113 11/30/18 06:00 100 18 152/85 (107) 98 11/30/18 05:00 99 18 155/80 (105) 98 11/30/18 04:00 98.0 104 18 153/83 (106) 98 11/30/18 04:00 Bi-pap 11/30/18 04:00 102 11/30/18 03:00 95 18 143/83 (103) 98 11/30/18 02:00 98 18 113/60 (77) 98 11/30/18 01:00 99 19 112/67 (82) 98 11/30/18 01:00 99 18 145/86 (105) 98 11/30/18 00:00 99 11/30/18 00:00 98.2 99 18 145/86 (105) 98 11/30/18 00:00 Bi-pap 11/29/18 23:00 99 18 130/65 (86) 97 11/29/18 22:00 99 16 112/64 (80) 97 11/29/18 21:00 99 16 108/61 (77) 97 11/29/18 20:00 98 11/29/18 20:00 98.0 98 18 116/59 (78) 97 11/29/18 20:00 Bi-pap 11/29/18 19:10 98 Nasal Cannula 2.0 28 11/29/18 19:10 Nasal Cannula 2.0 28 11/29/18 19:00 103 22 125/82 (96) 97 11/29/18 18:00 99 19 91/54 (66) 97 11/29/18 17:00 99 24 121/69 (86) 96 11/29/18 16:00 70 11/29/18 16:00 107 11/29/18 16:00 98.4 99 19 119/61 (80) 93 11/29/18 16:00 Bi-pap 11/29/18 15:00 97 18 128/68 (88) 96 11/29/18 14:00 97 18 120/64 (82) 94 11/29/18 13:00 97 18 130/73 (92) 96 11/29/18 12:00 70 11/29/18 12:00 98.1 97 16 118/59 (78) 100 11/29/18 12:00 Bi-pap 11/29/18 12:00 97 11/29/18 11:00 98 22 118/71 (87) 100 11/29/18 10:59 Nasal Cannula 2.0 28 11/29/18 10:59 100 Nasal Cannula 2.0 28 11/29/18 10:00 99 22 157/80 (105) 100 Status: awake Condition: critical, improving HEENT: atraumatic Neck: full ROM Heart: HR/BP stable Abdomen: soft, non-tender Extremities: edema Micro: Microbiology Date/Time Source Procedure Growth Status 11/28/18 20:30 Blood Blood Culture - Preliminary NO GROWTH AFTER 24 HOURS Resulted 11/28/18 20:15 Blood Blood Culture - Preliminary NO GROWTH AFTER 24 HOURS Resulted 11/28/18 20:58 Nasal Nares Influenza Types A,B Antigen (OG) - Final Complete 11/28/18 21:50 Urine,Clean Catch Urine Culture - Preliminary Gram Negative Bacillus 1 Resulted 11/29/18 00:00 Leg Left Gram Stain - Final Resulted 11/29/18 00:00 Leg Left Wound Culture Pending Resulted 11/28/18 20:58 Rectum Received Accucheck: 230 Critical Care - Subjective ROS Limited/Unobtainable: Yes ICU Day: 2 Condition: critical EKG Rhythm: Sinus Rhythm FI02: 28 Vent Support Breath Rate: 14 Vent Support Mode: BiLevel Sputum Amount: None I&O: Intake and Output 11/29/18 11/30/18 19:00 07:00 Intake Total 137 ml 280 ml Output Total 395 ml 530 ml Balance -258 ml -250 ml Intake Oral 0 ml 0 ml IV Total 137 ml 280 ml Output Urine Total 395 ml 530 ml CXR: less pulmonary edema Labs: Laboratory Tests Test 11/29/18 12:35 11/29/18 18:30 11/29/18 23:00 11/30/18 04:00 Lactic Acid Level 2.70 mmol/L (0.4-2.0) H 1.40 mmol/L (0.4-2.0) 1.40 mmol/L (0.66-2.22) Troponin I 0.293 ng/mL (0.000-0.056) Sodium Level 151 MMOL/L (136-145) H Potassium Level 3.7 MMOL/L (3.5-5.1) Chloride Level 110 MMOL/L (98-107) H Carbon Dioxide Level 27 MMOL/L (21-32) Anion Gap 14 mmol/L (5-15) Blood Urea Nitrogen 37 mg/dL (7-18) H Creatinine 0.8 MG/DL (0.55-1.30) Estimat Glomerular Filtration Rate mL/min (>60) Glucose Level 255 MG/DL (74-106) H Calcium Level 10.5 MG/DL (8.5-10.1) H Total Bilirubin 0.6 MG/DL (0.2-1.0) Aspartate Amino Transf (AST/SGOT) 13 U/L (15-37) L Alanine Aminotransferase (ALT/SGPT) 10 U/L (12-78) L Alkaline Phosphatase 84 U/L (46-116) Pro-B-Type Natriuretic Peptide 2282 pg/mL (0-125) H Total Protein 7.9 G/DL (6.4-8.2) Albumin 3.0 G/DL (3.4-5.0) L Globulin 4.9 g/dL Albumin/Globulin Ratio 0.6 (1.0-2.7) L Test 11/30/18 04:20 White Blood Count 10.8 K/UL (4.8-10.8) Red Blood Count 4.64 M/UL (4.20-5.40) Hemoglobin 14.0 G/DL (12.0-16.0) Hematocrit 44.3 % (37.0-47.0) Mean Corpuscular Volume 96 FL (80-99) Mean Corpuscular Hemoglobin 30.2 PG (27.0-31.0) Mean Corpuscular Hemoglobin Concent 31.6 G/DL (32.0-36.0) L Red Cell Distribution Width 14.3 % (11.6-14.8) Platelet Count 353 K/UL (150-450) Mean Platelet Volume 6.0 FL (6.5-10.1) L Neutrophils (%) (Auto) 82.7 % (45.0-75.0) H Lymphocytes (%) (Auto) 10.1 % (20.0-45.0) L Monocytes (%) (Auto) 7.0 % (1.0-10.0) Eosinophils (%) (Auto) 0.0 % (0.0-3.0) Basophils (%) (Auto) 0.2 % (0.0-2.0) Troponin I 0.295 ng/mL (0.000-0.056) Corey Salmon MD Nov 30, 2018 09:59
--- NOTE | 2018-11-30 10:02 | NUR ---
ST NOTE: SWALLOW/SPEECH/COGNITION STATUS RE-ASSESSED PT'S CONDITIONS. PT SEEN AT BEDSIDE IN AM WITH PT'S DAUGHTER AT BEDSIDE. ADJUST PT AT UPRIGHT POSITION. PT WITH NC(2L), OXYGEN LEVEL: 98-100%, RR: 18-20. VERBAL BUT CONFUSED. COMPLETED ORAL CARE. REDUCED LINGUAL MOVEMENT AND STRENGTH WAS NOTED. GIVEN NECTAR THICK LIQUIDS VIA TEASPOON(1/2 TEASPOON) X 5, MILDLY TO MODERATELY INCREASED ORAL TRANSIT TIME(5 SECS), AND OROPHARYNGEAL TRANSIT TIME, REDUCED LARYNGEAL ELEVATION, IMMEDIATE COUGHING X 1 WAS NOTED. PT WAS ABLE DEMONSTRATE DRY SWALLOW RESPONSE WHEN REQUESTED. DISCUSSED WITH PT'S DAUGHTER RE: PT'S CONDITIONS. PER PT'S DAUGHTER, DOESN'T WANT ANY TUBE FEEDING(NGT OR G-TUBE), AND REFUSED MODIFIED BARIUM SWALLOW STUDY. PT'S DAUGHTER VERBALIZED THE GOOD UNDERSTANDING OF INFO GIVEN(THE RISK FOR ASPIRATION). D/W THE CASE WITH , DR. MCBRIDE RE:PT'S DAUGHTER WISHES. MD AGREED WITH THE DIET AND POC. RECOMMENDATIONS: 1. FOR QUALITY OF LIFE(PO SHOULD BE GIVEN COMFORT FEEDING), SLOWLY INITIATE LIQUIFIED PUREED, LIKE NECTAR THICK SOUP CONSISTENCY WITH NECTAR THICK LIQUIDS 2. STRICT ASPIRATION/REFLUX PRECAUTIONS AT 1/2 TEASPOON LEVEL WITH 1TO1 FEEDING 3. ORAL CARE BEFORE AND AFTER MEALS. 4. ORAL SUCTION IF NEEDED. 5. CONSIDER COMFORT MEASURE. D/W PT'S DAUGHTER, LEMUEL SULTANA AND DR. REED AMEZCUA. POSTED ASPIRATION/REFLUX PRECAUTIONS SIGN.
--- NOTE | 2018-11-30 10:03 | Diagnostic Imaging Report ---
Indication: Dyspnea Technique: One view of the chest Comparison: 11/29/2018 Findings: Interim slight improvement of previously demonstrated left perihilar infiltrate. Overall better aeration of the left lung. There is suggestion of increased infiltrate in the right upper lobe. There may be trace pleural fluid on the right. Heart size is normal. Impression: Shifting infiltrates/edema, with improvement of disease on the left, slight worsening on the right. Possible developing small right pleural effusion
--- NOTE | 2018-11-30 11:34 | NUR ---
RD ASSESSMENT & RECOMMENDATIONS SEE CARE ACTIVITY FOR COMPLETE ASSESSMENT DAILY ESTIMATED NEEDS: Needs based on DM/ 56kg 25-30 kcals/kg 3146-9963 total kcals 1-1.3 g protein/kg 56-73 g total protein 25-30 mL/kg 3624-6862 total fluid mLs NUTRITION DIAGNOSIS: * Swallowing difficulty R/T dysphagia as evidenced by PYROTECHNIC ASSEMBLER recommends comfort feeding of liquify pureed, NTL. * Altered nutrition related lab values R/T diabetes as evidenced by elev BGs ([phone]), POC glu ([phone]) CURRENT DIET: CCHO MED, liquify pureed, NTL PO DIET RECOMMENDATIONS: CCHO MED/ texture per PYROTECHNIC ASSEMBLER ADDITIONAL RECOMMENDATIONS: * Calibrated bedscale wt for accurate CBW * Glucerna TID on liquify pureed texture diet * Skin integrity: add MVI x 1, Alfred 1pkt BID * Monitor BGs closely, need for long acting insulin
--- NOTE | 2018-11-30 13:00 | NUR ---
NURSE NOTES: pt on R.A sating 89%, hob>30, BP 94/52
--- NOTE | 2018-11-30 15:00 | NUR ---
NURSE NOTES: MD bishop here to speak with daughter and see pt. received order for cardizem 30mg q8hr po, dig 0.125mg po daily.
--- NOTE | 2018-11-30 15:00 | NUR ---
NURSE NOTES: pt on R.A sating 90%, hob>30, BP 90/52
[2018-11-30] MEDS ORDERED: GLYCOPYRRO0.2 MG/1 M GT (15:08)
--- NOTE | 2018-11-30 15:57 | Cardiology Report ---
APPROVED REPORT EXAM: Two-dimensional and M-mode echocardiogram with Doppler and color Doppler. INDICATION LV FUNCTION M-Mode DIMENSIONS IVSd1.1 (0.7-1.1cm)Left Atrium (MM)3.8 (1.6-4.0cm) LVDd3.0 (3.5-5.6cm)Aortic Root3.4 (2.0-3.7cm) PWd0.8 (0.7-1.1cm)Aortic Cusp Exc.1.6 (1.5-2.0cm) IVSs1.4 cm LVDs1.9 (2.5-4.0cm) PWs0.7 cm Other Information Technically limited study due to patient's breathing . Normal left ventricular chamber size, systolic function and wall motion to extend visualized . Left ventricular ejection fraction estimated to be 60-65%. No evidence of left ventricular hypertrophy. No evidence of pericardial effusion. All other cardiac chamber sizes are within normal limits. Aortic valve calcification with normal cusp excursion . Mildly thickened mitral valve leaflets with normal excursion. Mild mitral annulus and aortic root calcification. Pulmonic valve not well visualized. IVC at normal size without physiologic collapse . A color flow and spectral Doppler study was performed and revealed: No aortic insufficiency . Normal left ventricular diastolic function . Mild mitral regurgitation. Mild tricuspid regurgitation. Tricuspid systolic velocities suggests peak right ventricular systolic pressure of 40 mmHg,consistent with mild pulmonary hypertension .
--- NOTE | 2018-11-30 16:00 | NUR ---
NURSE NOTES: pt on R.A sating 91%, hob>30, BP 87/67.
--- NOTE | 2018-11-30 16:00 | NUR ---
NURSE NOTES: received call from case manger regarding desat testing for pt and oxygen trial. will place notes for pt and pt family.
--- NOTE | 2018-11-30 16:08 | Cardiac Electrophysiology PN ---
Subjective Subjective [id number] Objective Last 24 Hour Vital Signs Date Time Temp Pulse Resp B/P (MAP) Pulse Ox O2 Delivery O2 Flow Rate FiO2 11/30/18 14:00 109 27 103/53 (70) 97 11/30/18 13:00 113 17 94/52 (66) 89 11/30/18 12:00 106 11/30/18 12:00 Nasal Cannula 2.0 11/30/18 12:00 97.8 105 19 101/53 (69) 98 11/30/18 11:00 107 19 122/53 (76) 99 11/30/18 10:00 107 16 122/71 (88) 99 11/30/18 09:00 112 23 157/94 (115) 99 11/30/18 08:57 Nasal Cannula 2.0 28 11/30/18 08:57 100 Nasal Cannula 2.0 28 11/30/18 08:32 168/104 11/30/18 08:31 113 11/30/18 08:00 114 11/30/18 08:00 Nasal Cannula 2.0 11/30/18 08:00 115 21 176/112 (133) 96 11/30/18 07:00 96.8 100 16 148/84 (105) 95 11/30/18 06:00 100 18 152/85 (107) 98 11/30/18 05:00 99 18 155/80 (105) 98 11/30/18 04:00 98.0 104 18 153/83 (106) 98 11/30/18 04:00 Bi-pap 11/30/18 04:00 102 11/30/18 03:00 95 18 143/83 (103) 98 11/30/18 02:00 98 18 113/60 (77) 98 11/30/18 01:00 99 19 112/67 (82) 98 11/30/18 01:00 99 18 145/86 (105) 98 11/30/18 00:00 99 11/30/18 00:00 98.2 99 18 145/86 (105) 98 11/30/18 00:00 Bi-pap 11/29/18 23:00 99 18 130/65 (86) 97 11/29/18 22:00 99 16 112/64 (80) 97 11/29/18 21:00 99 16 108/61 (77) 97 11/29/18 20:00 98 11/29/18 20:00 98.0 98 18 116/59 (78) 97 11/29/18 20:00 Bi-pap 11/29/18 19:10 98 Nasal Cannula 2.0 28 11/29/18 19:10 Nasal Cannula 2.0 28 11/29/18 19:00 103 22 125/82 (96) 97 11/29/18 18:00 99 19 91/54 (66) 97 11/29/18 17:00 99 24 121/69 (86) 96 Intake and Output 11/29/18 11/30/18 19:00 07:00 Intake Total 137 ml 280 ml Output Total 395 ml 530 ml Balance -258 ml -250 ml Intake Oral 0 ml 0 ml IV Total 137 ml 280 ml Output Urine Total 395 ml 530 ml Laboratory Tests Test 11/29/18 18:30 11/29/18 23:00 11/30/18 04:00 11/30/18 04:20 Lactic Acid Level 1.40 mmol/L (0.4-2.0) 1.40 mmol/L (0.66-2.22) Troponin I 0.293 ng/mL (0.000-0.056) 0.295 ng/mL (0.000-0.056) Sodium Level 151 MMOL/L (136-145) H Potassium Level 3.7 MMOL/L (3.5-5.1) Chloride Level 110 MMOL/L (98-107) H Carbon Dioxide Level 27 MMOL/L (21-32) Anion Gap 14 mmol/L (5-15) Blood Urea Nitrogen 37 mg/dL (7-18) H Creatinine 0.8 MG/DL (0.55-1.30) Estimat Glomerular Filtration Rate mL/min (>60) Glucose Level 255 MG/DL (74-106) H Calcium Level 10.5 MG/DL (8.5-10.1) H Total Bilirubin 0.6 MG/DL (0.2-1.0) Aspartate Amino Transf (AST/SGOT) 13 U/L (15-37) L Alanine Aminotransferase (ALT/SGPT) 10 U/L (12-78) L Alkaline Phosphatase 84 U/L (46-116) Pro-B-Type Natriuretic Peptide 2282 pg/mL (0-125) H Total Protein 7.9 G/DL (6.4-8.2) Albumin 3.0 G/DL (3.4-5.0) L Globulin 4.9 g/dL Albumin/Globulin Ratio 0.6 (1.0-2.7) L White Blood Count 10.8 K/UL (4.8-10.8) Red Blood Count 4.64 M/UL (4.20-5.40) Hemoglobin 14.0 G/DL (12.0-16.0) Hematocrit 44.3 % (37.0-47.0) Mean Corpuscular Volume 96 FL (80-99) Mean Corpuscular Hemoglobin 30.2 PG (27.0-31.0) Mean Corpuscular Hemoglobin Concent 31.6 G/DL (32.0-36.0) L Red Cell Distribution Width 14.3 % (11.6-14.8) Platelet Count 353 K/UL (150-450) Mean Platelet Volume 6.0 FL (6.5-10.1) L Neutrophils (%) (Auto) 82.7 % (45.0-75.0) H Lymphocytes (%) (Auto) 10.1 % (20.0-45.0) L Monocytes (%) (Auto) 7.0 % (1.0-10.0) Eosinophils (%) (Auto) 0.0 % (0.0-3.0) Basophils (%) (Auto) 0.2 % (0.0-2.0) Microbiology Date/Time Source Procedure Growth Status 11/28/18 20:30 Blood Blood Culture - Preliminary Resulted 11/28/18 20:15 Blood Blood Culture - Preliminary NO GROWTH AFTER 24 HOURS Resulted 11/28/18 20:58 Nasal Nares MRSA Culture - Final Staphylococcus Aureus - Mrsa Complete 11/28/18 20:58 Nasal Nares Influenza Types A,B Antigen (OG) - Final Complete 11/28/18 21:50 Urine,Clean Catch Urine Culture - Preliminary Gram Negative Bacillus 1 Resulted 11/29/18 00:00 Leg Left Gram Stain - Final Resulted 11/29/18 00:00 Leg Left Wound Culture Pending Resulted 11/28/18 20:58 Rectum Received Cristi Nova MD Nov 30, 2018 16:07
--- NOTE | 2018-11-30 16:33 | Consultation ---
History of Present Illness General Date patient seen: Nov 30, 2018 Chief Complaint: Dyspnea/Respdistress Present Illness HPI This is a 87-year-old female with multiple medical comorbidities who presented with respiratory distress and shortness of breath and was admitted to the intensive care unit at [facility] for care and management. Upon admission family was present and stated that patient has had great care at home with a full team for her skin tissue and lower extremity wounds. They stated that at home they have an air mattress for her and they take great care and osiris in providing good care for her. On admission they were very adamant to ensure that she has adequate care. She was noted to have wounds of the bilateral lower extremities. Surgery called to evaluate and assist with management. Patient seen, patient evaluated, family present. Allergies: Coded Allergies: No Known Allergies (Unverified , 11/28/18) Medication History Scheduled Aspirin (Aspirin EC), 81 MG ORAL EVERY OTHER DAY, (Reported) Canagliflozin (Invokana), 100 MG PO DAILY, (Reported) Digoxin* (Digoxin*), 125 MCG ORAL DAILY, (Reported) Linagliptin (Tradjenta), 2.5 MG PO DAILY, (Reported) Metformin Hcl* (Metformin Hcl*), 850 MG ORAL DAILY, (Reported) Metoprolol Succinate* (Metoprolol Succinate*), 25 MG ORAL DAILY, (Reported) Trazodone Hcl (Trazodone Hcl), 100 MG ORAL BEDTIME, (Reported) Miscellaneous Medications Memantine HCl/Donepezil HCl (Namzaric 28 mg-10 mg Capsule), 1 EACH PO, (Reported ) Patient History Limited by: medical condition History Provided By: Family Member, Medical Record, PMD Healthcare decision maker Resuscitation status Full Code Advanced Directive on File Past Medical/Surgical History Past Medical/Surgical History: (1) Acute respiratory failure (2) At high risk for aspiration (3) Dementia (4) Venous stasis ulcer (5) Acute and chronic respiratory failure with hypoxia (6) Hypertensive emergency (7) Rapid atrial fibrillation (8) Alzheimer's dementia (9) Debility (10) Severe protein-calorie malnutrition Review of Systems ROS Narrative Patient cannot cooperate in exam or give history. Physical Exam General Appearance: mild distress Lines, tubes and drains: peripheral HEENT: normocephalic Neck: normal inspection Respiratory/Chest: respiratory distress, decreased breath sounds Cardiovascular/Chest: tachycardia Abdomen: soft, no organomegaly, no mass Extremities: inflammation, other Last 24 Hour Vital Signs Date Time Temp Pulse Resp B/P (MAP) Pulse Ox O2 Delivery O2 Flow Rate FiO2 11/30/18 14:00 109 27 103/53 (70) 97 11/30/18 13:00 113 17 94/52 (66) 89 11/30/18 12:00 106 11/30/18 12:00 Nasal Cannula 2.0 11/30/18 12:00 97.8 105 19 101/53 (69) 98 11/30/18 11:00 107 19 122/53 (76) 99 11/30/18 10:00 107 16 122/71 (88) 99 11/30/18 09:00 112 23 157/94 (115) 99 11/30/18 08:57 Nasal Cannula 2.0 28 11/30/18 08:57 100 Nasal Cannula 2.0 28 11/30/18 08:32 168/104 11/30/18 08:31 113 11/30/18 08:00 114 11/30/18 08:00 Nasal Cannula 2.0 11/30/18 08:00 115 21 176/112 (133) 96 11/30/18 07:00 96.8 100 16 148/84 (105) 95 11/30/18 06:00 100 18 152/85 (107) 98 11/30/18 05:00 99 18 155/80 (105) 98 11/30/18 04:00 98.0 104 18 153/83 (106) 98 11/30/18 04:00 Bi-pap 11/30/18 04:00 102 11/30/18 03:00 95 18 143/83 (103) 98 11/30/18 02:00 98 18 113/60 (77) 98 11/30/18 01:00 99 19 112/67 (82) 98 11/30/18 01:00 99 18 145/86 (105) 98 11/30/18 00:00 99 11/30/18 00:00 98.2 99 18 145/86 (105) 98 11/30/18 00:00 Bi-pap 11/29/18 23:00 99 18 130/65 (86) 97 11/29/18 22:00 99 16 112/64 (80) 97 11/29/18 21:00 99 16 108/61 (77) 97 11/29/18 20:00 98 11/29/18 20:00 98.0 98 18 116/59 (78) 97 11/29/18 20:00 Bi-pap 11/29/18 19:10 98 Nasal Cannula 2.0 28 11/29/18 19:10 Nasal Cannula 2.0 28 11/29/18 19:00 103 22 125/82 (96) 97 11/29/18 18:00 99 19 91/54 (66) 97 11/29/18 17:00 99 24 121/69 (86) 96 Intake and Output 11/29/18 11/30/18 19:00 07:00 Intake Total 137 ml 280 ml Output Total 395 ml 530 ml Balance -258 ml -250 ml Intake Oral 0 ml 0 ml IV Total 137 ml 280 ml Output Urine Total 395 ml 530 ml Laboratory Tests Test 11/29/18 18:30 11/29/18 23:00 11/30/18 04:00 11/30/18 04:20 Lactic Acid Level 1.40 mmol/L (0.4-2.0) 1.40 mmol/L (0.66-2.22) Troponin I 0.293 ng/mL (0.000-0.056) 0.295 ng/mL (0.000-0.056) Sodium Level 151 MMOL/L (136-145) H Potassium Level 3.7 MMOL/L (3.5-5.1) Chloride Level 110 MMOL/L (98-107) H Carbon Dioxide Level 27 MMOL/L (21-32) Anion Gap 14 mmol/L (5-15) Blood Urea Nitrogen 37 mg/dL (7-18) H Creatinine 0.8 MG/DL (0.55-1.30) Estimat Glomerular Filtration Rate mL/min (>60) Glucose Level 255 MG/DL (74-106) H Calcium Level 10.5 MG/DL (8.5-10.1) H Total Bilirubin 0.6 MG/DL (0.2-1.0) Aspartate Amino Transf (AST/SGOT) 13 U/L (15-37) L Alanine Aminotransferase (ALT/SGPT) 10 U/L (12-78) L Alkaline Phosphatase 84 U/L (46-116) Pro-B-Type Natriuretic Peptide 2282 pg/mL (0-125) H Total Protein 7.9 G/DL (6.4-8.2) Albumin 3.0 G/DL (3.4-5.0) L Globulin 4.9 g/dL Albumin/Globulin Ratio 0.6 (1.0-2.7) L White Blood Count 10.8 K/UL (4.8-10.8) Red Blood Count 4.64 M/UL (4.20-5.40) Hemoglobin 14.0 G/DL (12.0-16.0) Hematocrit 44.3 % (37.0-47.0) Mean Corpuscular Volume 96 FL (80-99) Mean Corpuscular Hemoglobin 30.2 PG (27.0-31.0) Mean Corpuscular Hemoglobin Concent 31.6 G/DL (32.0-36.0) L Red Cell Distribution Width 14.3 % (11.6-14.8) Platelet Count 353 K/UL (150-450) Mean Platelet Volume 6.0 FL (6.5-10.1) L Neutrophils (%) (Auto) 82.7 % (45.0-75.0) H Lymphocytes (%) (Auto) 10.1 % (20.0-45.0) L Monocytes (%) (Auto) 7.0 % (1.0-10.0) Eosinophils (%) (Auto) 0.0 % (0.0-3.0) Basophils (%) (Auto) 0.2 % (0.0-2.0) Height (Feet): 5 Height (Inches): 2.00 Weight (Pounds): 125 Medications Current Medications Medications (Trade) Dose Ordered Sig/Harshil Route PRN Reason Start Time Stop Time Status Last Admin Dose Admin Acetaminophen (Tylenol) 650 mg Q4H PRN ORAL FEVER 11/28/18 22:45 12/28/18 22:44 Albuterol/ Ipratropium (Albuterol/ Ipratropium) 3 ml Q4H PRN HHN Shortness of Breath 11/28/18 22:45 12/03/18 22:44 Dextrose (Dextrose 50%) 25 ml Q30M PRN IV Hypoglycemia 11/29/18 10:15 12/29/18 10:04 Dextrose (Dextrose 50%) 50 ml Q30M PRN IV hypoglycemia 11/29/18 10:15 12/29/18 10:14 Dextrose/Sodium Chloride 1,000 ml @ 35 mls/hr Q24H IV 11/29/18 14:51 12/29/18 14:50 11/29/18 15:07 Digoxin (Lanoxin) 0.25 mg DAILY IVP 11/29/18 09:00 12/29/18 08:59 11/30/18 08:31 Diltiazem HCl (Cardizem) 10 mg Q1H PRN IV heart rate more than 120, 11/28/18 22:45 12/28/18 22:44 Diltiazem HCl (Cardizem) 30 mg EVERY 8 HOURS ORAL 11/30/18 22:00 12/30/18 21:59 Enalaprilat (Vasotec) 2.5 mg Q6H PRN IV sbp more than 160 11/28/18 22:45 12/28/18 22:44 11/30/18 08:32 Heparin Sodium (Porcine) (Heparin 5000 units/ml) 5,000 units EVERY 12 HOURS SUBQ 11/29/18 21:00 12/29/18 20:59 11/30/18 08:41 Insulin Aspart (NovoLOG) BEFORE MEALS AND HS SUBQ 11/29/18 11:30 12/29/18 11:29 11/30/18 11:24 Metoprolol Succinate (Toprol XL) 25 mg DAILY ORAL 11/30/18 09:00 12/30/18 08:59 Metoprolol Tartrate (Lopressor) 5 mg Q1H PRN IVP heart rate more than 140 11/28/18 22:45 12/28/18 22:44 Metoprolol Tartrate (Lopressor) 12.5 mg Q12HR ORAL 11/30/18 21:00 12/30/18 20:59 UNV Pantoprazole (Protonix) 40 mg DAILY IVP 11/29/18 09:00 12/29/18 08:59 11/30/18 08:32 Trazodone HCl (Desyrel) 100 mg BEDTIME ORAL 11/29/18 21:00 12/29/18 20:59 Assessment/Plan Problem List: (1) Acute respiratory failure ICD Codes: J96.00 - Acute respiratory failure, unspecified whether with hypoxia or hypercapnia SNOMED: 75860129 (2) At high risk for aspiration ICD Codes: Z91.89 - Other specified personal risk factors, not elsewhere classified SNOMED: 920067093 (3) Dementia ICD Codes: F03.90 - Unspecified dementia without behavioral disturbance SNOMED: 83346742 (4) Venous stasis ulcer Assessment & Plan: Pt presented on admission with dry ulcers R and L lower ext. On lateral RLE small dry eschar noted (L)0.5cm x (W)0.4cm.Inferior but in close proximity second linear shaped ulcer that is loyda pink but dry .Edges adherent to base of wound (L)5.5cm x (W)0.9cm. No edema,erythema or elevation in skin temp periwound. Dry peeling skin dorsal aspect of R foot. Stable dry brown eschar noted to medial R heel (L)1.5cm x (W)1cm.No fluctuance erythema or induration periwound. Resolving linear shaped ulcer medial LLE .Base of is pink with small dry brown eschar medially.NO erythema edema or elevation in skin temp at site of wound. L heel is soft,pink but blanchable.Sacrum and all oother pressure points without evidence of skin breakdown. Tx.Plan: Apply Calazime Paste to both lower ext. Cover ulcers and heels with ABD pads .Wrap with Kerlix from base of toes to 1inch below knees. Change every other day and prn. Apply Moisture BArrier to Sacrum.Cover with Optifoam drsg .Change every 3 days and prn. APM/JAY Mattress. Reposition at least every 2hours or as tolerated. Off-Load Heels with Pillow. ICD Codes: I83.009 - Varicose veins of unspecified lower extremity with ulcer of unspecified site; L97.909 - Non-pressure chronic ulcer of unspecified part of unspecified lower leg with unspecified severity SNOMED: 433279832, 37580006, 40372600 (5) Acute and chronic respiratory failure with hypoxia ICD Codes: J96.21 - Acute and chronic respiratory failure with hypoxia SNOMED: 90427480, 858792259 (6) Hypertensive emergency ICD Codes: I16.1 - Hypertensive emergency SNOMED: 469002057617246 (7) Rapid atrial fibrillation ICD Codes: I48.91 - Unspecified atrial fibrillation SNOMED: 485852630 (8) Alzheimer's dementia ICD Codes: G30.9 - Alzheimer's disease, unspecified; F02.80 - Dementia in other diseases classified elsewhere without behavioral disturbance SNOMED: 91842133 (9) Debility ICD Codes: R53.81 - Other malaise SNOMED: 76147083 (10) Severe protein-calorie malnutrition Assessment & Plan: DAILY ESTIMATED NEEDS: Needs based on DM/ 56kg 25-30 kcals/kg 0214-4438 total kcals 1-1.3 g protein/kg 56-73 g total protein 25-30 mL/kg 1244-6476 total fluid mLs NUTRITION DIAGNOSIS: * Swallowing difficulty R/T dysphagia as evidenced by CONTINUING EDUCATION DIRECTOR recommends comfort feeding of liquify pureed, NTL. * Altered nutrition related lab values R/T diabetes as evidenced by elev BGs (255 311), POC glu (230 189 194) CURRENT DIET: CCHO MED, liquify pureed, NTL PO DIET RECOMMENDATIONS: CCHO MED/ texture per CONTINUING EDUCATION DIRECTOR ADDITIONAL RECOMMENDATIONS: * Calibrated bedscale wt for accurate CBW * Glucerna TID on liquify pureed texture diet * Skin integrity: add MVI x 1, Alfred 1pkt BID * Monitor BGs closely, need for long acting insulin ICD Codes: E43 - Unspecified severe protein-calorie malnutrition SNOMED: 096759802, 488107595, 922769232 Gómez Campbell Nov 30, 2018 16:33
--- NOTE | 2018-11-30 17:00 | NUR ---
HAND-OFF: Report given to fabiola allan. pt in no acute distress. endorsed accuchk and feeding dinner.
--- NOTE | 2018-11-30 17:01 | NUR ---
NURSE NOTES: Received report from Asmita SULTANA. Pt is awake, alert, confused. Pt is currently on room air with O2Sat at 90-93%, with no s/s of respiratory distress, bilateral lung sounds auscultated, wheezing heard on inspiration. No signs/symptoms or report of pain present. school lunch monitor displays Sinus Tachycardia with HR in the 100-110's. Abdomen flat and soft to the touch, hypoactive bowel sounds present in all quadrants. Peripheral IV access is present on right hand #20G, infusing D5 0.45%NS at 35mL/hour and right FA #22G, saline lock, patent/intact. Bilateral knee/mild edema present. Skin has sacral redness, covered with Optifoam dressing, and BLE extremities dressings for venous stasis ulcers, dressings changed by Dr Campbell today, dry/intact. Bilateral heel protectors in place. External urinary catheter (purewhick) present, draining clear/melissa urine. Bed is locked with three side rails up and call light within easy reach. Will continue to monitor pt and follow plan of care per MD orders and protocol.
[2018-11-30] MEDS: D5 1/2NS 1,000 ML IV SCH (17:11)
--- NOTE | 2018-11-30 17:30 | NUR ---
NURSE NOTES: Pt was assisted by RN 1:1 feeding with dinner, consumed 50%. Also, pt was cleaned and repositioned after dinner.
--- NOTE | 2018-11-30 19:14 | Internal Med Progress Note ---
Subjective Date of Service: Nov 30, 2018 Physician Name Bhanu Valentine Attending Physician Selwyn Stein MD Current Medications Medications (Trade) Dose Ordered Sig/Harshil Route PRN Reason Start Time Stop Time Status Last Admin Dose Admin Acetaminophen (Tylenol) 650 mg Q4H PRN ORAL FEVER 11/28/18 22:45 12/28/18 22:44 Albuterol/ Ipratropium (Albuterol/ Ipratropium) 3 ml Q4H PRN HHN Shortness of Breath 11/28/18 22:45 12/03/18 22:44 Dextrose (Dextrose 50%) 25 ml Q30M PRN IV Hypoglycemia 11/29/18 10:15 12/29/18 10:04 Dextrose (Dextrose 50%) 50 ml Q30M PRN IV hypoglycemia 11/29/18 10:15 12/29/18 10:14 Dextrose/Sodium Chloride 1,000 ml @ 35 mls/hr Q24H IV 11/29/18 14:51 12/29/18 14:50 11/30/18 17:11 Digoxin (Lanoxin) 0.25 mg DAILY IVP 11/29/18 09:00 12/29/18 08:59 11/30/18 08:31 Diltiazem HCl (Cardizem) 10 mg Q1H PRN IV heart rate more than 120, 11/28/18 22:45 12/28/18 22:44 Diltiazem HCl (Cardizem) 30 mg EVERY 8 HOURS ORAL 11/30/18 22:00 12/30/18 21:59 Enalaprilat (Vasotec) 2.5 mg Q6H PRN IV sbp more than 160 11/28/18 22:45 12/28/18 22:44 11/30/18 08:32 Heparin Sodium (Porcine) (Heparin 5000 units/ml) 5,000 units EVERY 12 HOURS SUBQ 11/29/18 21:00 12/29/18 20:59 11/30/18 08:41 Insulin Aspart (NovoLOG) BEFORE MEALS AND HS SUBQ 11/29/18 11:30 12/29/18 11:29 11/30/18 17:28 Metoprolol Succinate (Toprol XL) 25 mg DAILY ORAL 11/30/18 09:00 12/30/18 08:59 Metoprolol Tartrate (Lopressor) 5 mg Q1H PRN IVP heart rate more than 140 11/28/18 22:45 12/28/18 22:44 Pantoprazole (Protonix) 40 mg DAILY IVP 11/29/18 09:00 12/29/18 08:59 11/30/18 08:32 Trazodone HCl (Desyrel) 100 mg BEDTIME ORAL 11/29/18 21:00 12/29/18 20:59 Allergies: Coded Allergies: No Known Allergies (Unverified , 11/28/18) ROS Limited/Unobtainable: Yes Subjective 87 YO F admitted with shortness of breath. Now atrial fibrillation with rapid ventricular rate. Cover for Int Med-DR Stein. ICU Objective Last Vital Signs Date Time Temp Pulse Resp B/P (MAP) Pulse Ox O2 Delivery O2 Flow Rate FiO2 11/30/18 19:07 114 18 Room Air 11/30/18 19:06 94 11/30/18 18:00 103/61 (75) 11/30/18 17:00 98.5 11/30/18 16:00 2.0 11/30/18 08:57 28 Laboratory Tests Test 11/29/18 23:00 11/30/18 04:00 11/30/18 04:20 Lactic Acid Level 1.40 mmol/L (0.66-2.22) Troponin I 0.293 ng/mL (0.000-0.056) 0.295 ng/mL (0.000-0.056) Sodium Level 151 MMOL/L (136-145) H Potassium Level 3.7 MMOL/L (3.5-5.1) Chloride Level 110 MMOL/L (98-107) H Carbon Dioxide Level 27 MMOL/L (21-32) Anion Gap 14 mmol/L (5-15) Blood Urea Nitrogen 37 mg/dL (7-18) H Creatinine 0.8 MG/DL (0.55-1.30) Estimat Glomerular Filtration Rate mL/min (>60) Glucose Level 255 MG/DL (74-106) H Calcium Level 10.5 MG/DL (8.5-10.1) H Total Bilirubin 0.6 MG/DL (0.2-1.0) Aspartate Amino Transf (AST/SGOT) 13 U/L (15-37) L Alanine Aminotransferase (ALT/SGPT) 10 U/L (12-78) L Alkaline Phosphatase 84 U/L (46-116) Pro-B-Type Natriuretic Peptide 2282 pg/mL (0-125) H Total Protein 7.9 G/DL (6.4-8.2) Albumin 3.0 G/DL (3.4-5.0) L Globulin 4.9 g/dL Albumin/Globulin Ratio 0.6 (1.0-2.7) L White Blood Count 10.8 K/UL (4.8-10.8) Red Blood Count 4.64 M/UL (4.20-5.40) Hemoglobin 14.0 G/DL (12.0-16.0) Hematocrit 44.3 % (37.0-47.0) Mean Corpuscular Volume 96 FL (80-99) Mean Corpuscular Hemoglobin 30.2 PG (27.0-31.0) Mean Corpuscular Hemoglobin Concent 31.6 G/DL (32.0-36.0) L Red Cell Distribution Width 14.3 % (11.6-14.8) Platelet Count 353 K/UL (150-450) Mean Platelet Volume 6.0 FL (6.5-10.1) L Neutrophils (%) (Auto) 82.7 % (45.0-75.0) H Lymphocytes (%) (Auto) 10.1 % (20.0-45.0) L Monocytes (%) (Auto) 7.0 % (1.0-10.0) Eosinophils (%) (Auto) 0.0 % (0.0-3.0) Basophils (%) (Auto) 0.2 % (0.0-2.0) Microbiology Date/Time Source Procedure Growth Status 11/28/18 20:30 Blood Blood Culture - Preliminary Resulted 11/28/18 20:15 Blood Blood Culture - Preliminary NO GROWTH AFTER 24 HOURS Resulted 11/28/18 20:58 Nasal Nares MRSA Culture - Final Staphylococcus Aureus - Mrsa Complete 11/28/18 20:58 Nasal Nares Influenza Types A,B Antigen (OG) - Final Complete 11/28/18 21:50 Urine,Clean Catch Urine Culture - Preliminary Gram Negative Bacillus 1 Resulted 11/29/18 00:00 Leg Left Gram Stain - Final Resulted 11/29/18 00:00 Leg Left Wound Culture Pending Resulted 11/28/18 20:58 Rectum Received Intake and Output 11/29/18 11/30/18 19:00 07:00 Intake Total 137 ml 315 ml Output Total 395 ml 530 ml Balance -258 ml -215 ml Intake Oral 0 ml 0 ml IV Total 137 ml 315 ml Output Urine Total 395 ml 530 ml Objective PHYSICAL EXAMINATION: GENERAL: The patient is a thin-appearing frail white female, in no apparent distress. HEENT: Eyes, pupils are equal and responsive to light and accommodation. Extraocular movements are intact. NECK: Supple without lymphadenopathy. CHEST: Decreased breath sounds at bilateral bases. Otherwise, clear to auscultation without wheezes or rales. CARDIOVASCULAR: Tachycardic, regular rate. S1 and S2 are normal without murmurs, rubs, or gallops. ABDOMEN: Soft, nontender, and nondistended. Positive bowel sounds. No evidence of hepatosplenomegaly. Currently, no rebound or guarding noted. EXTREMITIES: Negative for clubbing, cyanosis, or edema. RECTAL/GENITAL: Not performed. NEUROLOGIC: Cranial nerves II through XII are grossly intact without focal deficits. Assessment/Plan Assessment/Plan ASSESSMENT: This is an 87-year-old white female. 1. Respiratory failure. 2. Pneumonia. 3. Atrial fibrillation with rapid ventricular rate. 4. Diabetes type 2. 5. Hypertension. 6. Alzheimer's dementia. TREATMENT: 1. Pneumonia/respiratory failure. A Pulmonary consultation has been obtained with Dr. Corey Salmon. The patient has been started empirically on ceftriaxone. The patient was previously on BiPAP, however is now, tolerating nasal cannula. 2. Atrial fibrillation. See cardiology note. Continue digoxin as above. 3. Diabetes type 2. The patient has been started on NovoLog sliding scale. 4. Hypertension. The patient is currently hypotensive. 5. Alzheimer's dementia. Bhanu Valentine MD Nov 30, 2018 19:14
--- NOTE | 2018-11-30 19:15 | NUR ---
HAND-OFF: Report given to Blossom SULTANA. Pt is resting in bed in stable condition. Endorsed plan of care.
--- NOTE | 2018-11-30 19:30 | NUR ---
NURSE NOTES:Received pt awake, incomprehensible, slightly following simple commands, ST on the monitor, bp stable, afebrile , on room air. 02 sat >92%, hob kept elevated. Watch for any resp. distress. Pt has venous stasis ulcer to bilateral lower extremitie, covered with drsg dry and intact Purewick to suction with melissa yellow urine moderate in amt. perinneal care was done- Will continue to monitor.
[2018-11-30] MEDS ORDERED: Glycopyrrolate 0.2mg/ml 1ml Vial GT ONE (21:00)
[2018-11-30] MEDS ORDERED: Metoprolol Tartrate 12.5mg TAB ORAL SCH (21:00)
--- NOTE | 2018-11-30 21:00 | NUR ---
NURSE NOTES:Turned to sides for comfort with good skin care done.
[2018-11-30] MEDS: TraZODone 100mg tab ORAL SCH (21:18)
[2018-11-30] MEDS ORDERED: dilTIAZem HCl 30mg tab ORAL SCH (22:00)
--- NOTE | 2018-11-30 23:00 | NUR ---
NURSE NOTES:Sleeping well at this time, No SOB nor CP noted.
--- NOTE | 2018-11-30 23:15 | Consultation ---
DATE OF CONSULTATION: 11/30/2018 CARDIOLOGY CONSULTATION CONSULTING PHYSICIAN: Cristi Nova M.D. REFERRING PHYSICIAN: Selwyn Stein M.D. ADDITIONAL REFERRING PHYSICIAN: Corey Salmon M.D. REASON FOR CONSULTATION: Atrial fibrillation. HISTORY OF PRESENT ILLNESS: The patient is an 87-year-old lady with history of chronic atrial fibrillation, hypertension, diabetes, and dementia as well history of breast cancer, status post left mastectomy, who lives at home, was brought in by paramedics for difficulty breathing. Her blood pressure was in the 180s. The patient in the emergency room was put on BiPAP, received IV digoxin, and started on Cardizem drip in view of atrial fibrillation with rapid ventricular response. At time of my evaluation, the Cardizem drip has been discontinued and the patient is in intensive care unit. REVIEW OF SYSTEMS: Cannot be obtained as the patient is nonverbal. PAST MEDICAL HISTORY: As mentioned above. FAMILY HISTORY: Noncontributory. MEDICATIONS: Include aspirin, digoxin, Tradjenta, metformin, metoprolol, and trazodone. SOCIAL HISTORY: She lives at home. Does not smoke or drink alcohol. Currently is full code. She is on dialysis. Do not intubate. PHYSICAL EXAMINATION: VITAL SIGNS: Show blood pressure is 103/62, pulse is 109, and respirations 27. NECK: Shows mild JVD. LUNGS: Have coarse rhonchi. CARDIOVASCULAR: Shows irregular S1 and S2 with no gallop or murmur. ABDOMEN: Soft. EXTREMITIES: Have no pitting edema. LABORATORY AND DIAGNOSTIC DATA: Labs show white count of 10.8, hemoglobin of 14, hematocrit 44.3, and platelet count of 353,000. Sodium is 151, potassium is 3.7, BUN of 37, and creatinine of 0.8. Glucose is 255. Troponin is 0.29 and 0.29. BNP is 2282. ASSESSMENT AND PLAN: 1. Atrial fibrillation with rapid ventricular response. The patient received 0.25 mg of IV metoprolol daily. I will put her on Cardizem 30 mg every 8 hours for the rate control. The patient probably would need anticoagulation as well. 2. Hypertension, on metoprolol. 3. Shortness of breath. The patient's echocardiogram showed ejection fraction of 65% with no left ventricular hypertrophy. 4. Respiratory failure, on BiPAP per Dr. Salmon. Family states that the patient is do not intubate. 5. Diabetes, on metformin and Invokana. Thank you very much, Dr. Stein, for allowing me to participate in the care of this patient. Please do not hesitate to contact me for any questions regarding my evaluation. Sincerely, Cristi Nova M.D. DR: COCO JOB#: [id number] CC:
[2018-12-01] VITALS (12 sets, daily range): BP systolic 35–154; BP diastolic 56–95
--- NOTE | 2018-12-01 00:47 | NUR ---
NURSE NOTES: Remained on NSR bp stable.
--- NOTE | 2018-12-01 02:00 | NUR ---
NURSE NOTES: Sleeping at this time, 02 sat 100%. BP 141/56 ST 105/min.
--- NOTE | 2018-12-01 04:00 | NUR ---
NURSE NOTES: Complete bath with bed changed done.
[2018-12-01 04:22] LABS: BASOPHILS % (AUTO) 0.5 % (0.0-2.0); HEMATOCRIT 42.4 % (37.0-47.0); HEMOGLOBIN 13.5 G/DL (12.0-16.0); LYMPHOCYTES % (AUTO) 10.3 % (20.0-45.0); MEAN CORPUSCULAR VOLUME 96 FL (80-99); MONOCYTES % (AUTO) 8.4 % (1.0-10.0); NEUTROPHILS % (AUTO) 80.8 % (45.0-75.0); PLATELET COUNT 306 K/UL (150-450); RED BLOOD COUNT 4.42 M/UL (4.20-5.40); RED CELL DISTRIBUTION WIDTH 14.3 % (11.6-14.8); WHITE BLOOD COUNT 9.6 K/UL (4.8-10.8)
[2018-12-01 04:42] LABS: ALANINE AMINOTRANSFERASE 11 U/L (12-78); ALBUMIN 2.8 G/DL (3.4-5.0); ALBUMIN/GLOBULIN RATIO 0.6 (1.0-2.7); ALKALINE PHOSPHATASE 74 U/L (46-116); ANION GAP 9 mmol/L (5-15); ASPARTATE AMINO TRANSFERASE 14 U/L (15-37); BILIRUBIN,TOTAL 0.4 MG/DL (0.2-1.0); BLOOD UREA NITROGEN 38 mg/dL (7-18); CALCIUM 10.3 MG/DL (8.5-10.1); CARBON DIOXIDE 30 MMOL/L (21-32); CHLORIDE 113 MMOL/L (98-107); CREATININE 0.6 MG/DL (0.55-1.30); PHOSPHORUS 1.8 MG/DL (2.5-4.9); POTASSIUM 3.6 MMOL/L (3.5-5.1); SODIUM 152 MMOL/L (136-145)
--- NOTE | 2018-12-01 05:35 | NUR ---
NURSE NOTES:Transfer pt to tele Rm 212-2 via bed. VSS . Report given to RD Tavares. Bedside rounds was done. Belonging endorsed.
[2018-12-01] MEDS ORDERED: D5 1/2NS 1,000 ML IV SCH (05:45)
--- NOTE | 2018-12-01 05:46 | NUR ---
INTER-FACILITY TRANSFER: Patient transferred to [], per []. Report given to []. Patient transferred with valuables and medications. Belongings verified upon transferr and given to[]. Family/S.O. notified of transfer.
[2018-12-01] MEDS: NovoLOG Insulin Flexpen SUBQ SCH ×2 (06:44→11:24)
[2018-12-01] MEDS ORDERED: Albuterol/Ipratropium 3ml neb HHN PRN (06:45)
[2018-12-01] MEDS: dilTIAZem HCl 30mg tab ORAL SCH ×2 (06:46→13:12)
--- NOTE | 2018-12-01 07:43 | NUR ---
HAND-OFF: Report given to RD Bailey. Pt stable.
--- NOTE | 2018-12-01 08:52 | NUR ---
NURSE NOTES: pt awake alert, no distress. no sob. call light within reach. bed in lowest position, locked. daugter at bedside, left msg to dr Salmon for k level today, awaiting response.
[2018-12-01] MEDS ORDERED: Digoxin 0.5mg/2ml Inj IVP SCH (09:00)
[2018-12-01] MEDS ORDERED: Metoprolol Succinate XL 25mg tab ORAL SCH (09:00)
[2018-12-01] MEDS ORDERED: Pantoprazole Inj IVP SCH (09:00)
[2018-12-01] MEDS ORDERED: Heparin 5000 units/ml inj SUBQ SCH (09:00)
--- NOTE | 2018-12-01 09:32 | NUR ---
NURSE NOTES: left msg for Mary re dcp with oxygen
[2018-12-01] MEDS ORDERED: Enalaprilat 2.5mg/2ml Inj IV PRN (10:45)
--- NOTE | 2018-12-01 11:03 | Surgery Progress Note ---
Surgery Progress Note Subjective Additional Comments no acute events. out of ICU on tele. labs noted. micro noted. good preventive care being provided. dressings intact and dry Objective Last 24 Hour Vital Signs Date Time Temp Pulse Resp B/P (MAP) Pulse Ox O2 Delivery O2 Flow Rate FiO2 12/01/18 08:15 99 12/01/18 08:14 99 140/89 12/01/18 08:06 97 Room Air 12/01/18 08:06 Room Air 12/01/18 07:38 104 12/01/18 07:20 98.0 99 20 140/89 (106) 98 12/01/18 07:16 Room Air 12/01/18 06:46 98 154/95 12/01/18 06:46 98 154/95 (114) 98 12/01/18 05:00 95 20 130/72 (91) 98 12/01/18 04:00 96 12/01/18 04:00 98.0 97 19 135/65 (88) 98 12/01/18 04:00 Room Air 12/01/18 03:00 97 18 133/74 (93) 98 12/01/18 02:00 105 18 141/56 (84) 98 12/01/18 01:00 104 18 133/77 (95) 98 12/01/18 00:00 97.8 103 18 121/73 (89) 96 12/01/18 00:00 101 12/01/18 00:00 Room Air 11/30/18 23:00 101 16 135/79 (97) 96 11/30/18 22:00 104 16 123/70 (87) 96 11/30/18 21:37 105 161/80 11/30/18 21:00 103 17 140/78 (98) 96 11/30/18 20:00 104 11/30/18 20:00 98.0 103 16 131/77 (95) 94 11/30/18 20:00 Room Air 11/30/18 19:07 114 18 Room Air 11/30/18 19:06 Room Air 11/30/18 19:06 94 Room Air 11/30/18 19:00 113 20 130/76 (94) 94 11/30/18 18:00 115 18 103/61 (75) 92 11/30/18 17:00 Room Air 11/30/18 17:00 107 17 84/47 (59) 91 11/30/18 17:00 98.5 11/30/18 16:00 108 11/30/18 16:00 97.3 105 19 87/67 (74) 91 11/30/18 16:00 Nasal Cannula 2.0 11/30/18 15:00 110 21 90/52 (65) 90 11/30/18 14:00 109 27 103/53 (70) 97 11/30/18 13:00 113 17 94/52 (66) 89 11/30/18 12:00 106 11/30/18 12:00 Nasal Cannula 2.0 11/30/18 12:00 97.8 105 19 101/53 (69) 98 I&O Intake and Output 11/30/18 12/01/18 18:59 06:59 Intake Total 505 ml 470 ml Output Total 215 ml 435 ml Balance 290 ml 35 ml Intake Oral 120 ml 120 ml IV Total 385 ml 350 ml Output Urine Total 215 ml 435 ml # Voids 4 Dressing: dry Wound: clean Drains: other Cardiovascular: RSR Respiratory: clear Abdomen: soft, present bowel sounds, non-distended Extremities: edema, no cyanosis, other Laboratory Tests Test 12/01/18 03:00 White Blood Count 9.6 K/UL (4.8-10.8) Red Blood Count 4.42 M/UL (4.20-5.40) Hemoglobin 13.5 G/DL (12.0-16.0) Hematocrit 42.4 % (37.0-47.0) Mean Corpuscular Volume 96 FL (80-99) Mean Corpuscular Hemoglobin 30.4 PG (27.0-31.0) Mean Corpuscular Hemoglobin Concent 31.8 G/DL (32.0-36.0) L Red Cell Distribution Width 14.3 % (11.6-14.8) Platelet Count 306 K/UL (150-450) Mean Platelet Volume 5.9 FL (6.5-10.1) L Neutrophils (%) (Auto) 80.8 % (45.0-75.0) H Lymphocytes (%) (Auto) 10.3 % (20.0-45.0) L Monocytes (%) (Auto) 8.4 % (1.0-10.0) Eosinophils (%) (Auto) 0.0 % (0.0-3.0) Basophils (%) (Auto) 0.5 % (0.0-2.0) Sodium Level 152 MMOL/L (136-145) H Potassium Level 3.6 MMOL/L (3.5-5.1) Chloride Level 113 MMOL/L (98-107) H Carbon Dioxide Level 30 MMOL/L (21-32) Anion Gap 9 mmol/L (5-15) Blood Urea Nitrogen 38 mg/dL (7-18) H Creatinine 0.6 MG/DL (0.55-1.30) Estimat Glomerular Filtration Rate mL/min (>60) Glucose Level 214 MG/DL (74-106) H Calcium Level 10.3 MG/DL (8.5-10.1) H Phosphorus Level 1.8 MG/DL (2.5-4.9) L Magnesium Level 2.0 MG/DL (1.8-2.4) Total Bilirubin 0.4 MG/DL (0.2-1.0) Aspartate Amino Transf (AST/SGOT) 14 U/L (15-37) L Alanine Aminotransferase (ALT/SGPT) 11 U/L (12-78) L Alkaline Phosphatase 74 U/L (46-116) Total Protein 7.4 G/DL (6.4-8.2) Albumin 2.8 G/DL (3.4-5.0) L Globulin 4.6 g/dL Albumin/Globulin Ratio 0.6 (1.0-2.7) L Plan Problems: (1) Acute respiratory failure (2) At high risk for aspiration (3) Dementia (4) Venous stasis ulcer Assessment & Plan: Pt presented on admission with dry ulcers R and L lower ext. On lateral RLE small dry eschar noted (L)0.5cm x (W)0.4cm.Inferior but in close proximity second linear shaped ulcer that is loyda pink but dry .Edges adherent to base of wound (L)5.5cm x (W)0.9cm. No edema,erythema or elevation in skin temp periwound. Dry peeling skin dorsal aspect of R foot. Stable dry brown eschar noted to medial R heel (L)1.5cm x (W)1cm.No fluctuance erythema or induration periwound. Resolving linear shaped ulcer medial LLE .Base of is pink with small dry brown eschar medially.NO erythema edema or elevation in skin temp at site of wound. L heel is soft,pink but blanchable.Sacrum and all oother pressure points without evidence of skin breakdown. Tx.Plan: Apply Calazime Paste to both lower ext. Cover ulcers and heels with ABD pads .Wrap with Kerlix from base of toes to 1inch below knees. Change every other day and prn. Apply Moisture BArrier to Sacrum.Cover with Optifoam drsg .Change every 3 days and prn. APM/JAY Mattress. Reposition at least every 2hours or as tolerated. Off-Load Heels with Pillow. (5) Acute and chronic respiratory failure with hypoxia (6) Hypertensive emergency (7) Rapid atrial fibrillation (8) Alzheimer's dementia (9) Debility (10) Severe protein-calorie malnutrition Assessment & Plan: DAILY ESTIMATED NEEDS: Needs based on DM/ 56kg 25-30 kcals/kg 4281-9818 total kcals 1-1.3 g protein/kg 56-73 g total protein 25-30 mL/kg 8683-3224 total fluid mLs NUTRITION DIAGNOSIS: * Swallowing difficulty R/T dysphagia as evidenced by [facility] recommends comfort feeding of liquify pureed, NTL. * Altered nutrition related lab values R/T diabetes as evidenced by elev BGs ([phone]), POC glu ([phone]) CURRENT DIET: CCHO MED, liquify pureed, NTL PO DIET RECOMMENDATIONS: CCHO MED/ texture per [facility] ADDITIONAL RECOMMENDATIONS: * Calibrated bedscale wt for accurate CBW * Glucerna TID on liquify pureed texture diet * Skin integrity: add MVI x 1, Alfred 1pkt BID * Monitor BGs closely, need for long acting insulin Gómez Campbell Dec 01, 2018 11:03
[2018-12-01] MEDS ORDERED: JANUVIA50 MG ORAL (12:07)
[2018-12-01] MEDS ORDERED: GLYCOPYRROLATE (12:07)
--- NOTE | 2018-12-01 12:11 | Pulmonology Progress Note ---
Assessment/Plan Problems: (1) Acute respiratory failure (2) Hypertensive emergency (3) Rapid atrial fibrillation (4) Severe protein-calorie malnutrition (5) At high risk for aspiration (6) Dementia (7) Alzheimer's dementia (8) Venous stasis ulcer (9) Debility Assessment/Plan improving heart rate better saturation better bp is ok eating a little daughter wants to take her home suggested hospice care at home, dr. Thorpe informed. Subjective ROS Limited/Unobtainable: No Interval Events: looks much better Constitutional: Reports: no symptoms HEENT: Repors: no symptoms Allergies: Coded Allergies: No Known Allergies (Unverified , 11/28/18) Objective Last 24 Hour Vital Signs Date Time Temp Pulse Resp B/P (MAP) Pulse Ox O2 Delivery O2 Flow Rate FiO2 12/01/18 09:15 98.0 100 20 128/80 (96) 98 12/01/18 09:00 98.0 95 20 130/89 (103) 86 12/01/18 08:15 99 12/01/18 08:14 99 140/89 12/01/18 08:06 97 Room Air 12/01/18 08:06 Room Air 12/01/18 07:38 104 12/01/18 07:20 98.0 99 20 140/89 (106) 98 12/01/18 07:16 Room Air 12/01/18 06:46 98 154/95 12/01/18 06:46 98 154/95 (114) 98 12/01/18 05:00 95 20 130/72 (91) 98 12/01/18 04:00 96 12/01/18 04:00 98.0 97 19 135/65 (88) 98 12/01/18 04:00 Room Air 12/01/18 03:00 97 18 133/74 (93) 98 12/01/18 02:00 105 18 141/56 (84) 98 12/01/18 01:00 104 18 133/77 (95) 98 12/01/18 00:00 97.8 103 18 121/73 (89) 96 12/01/18 00:00 101 12/01/18 00:00 Room Air 11/30/18 23:00 101 16 135/79 (97) 96 11/30/18 22:00 104 16 123/70 (87) 96 11/30/18 21:37 105 161/80 11/30/18 21:00 103 17 140/78 (98) 96 11/30/18 20:00 104 11/30/18 20:00 98.0 103 16 131/77 (95) 94 11/30/18 20:00 Room Air 11/30/18 19:07 114 18 Room Air 11/30/18 19:06 Room Air 11/30/18 19:06 94 Room Air 11/30/18 19:00 113 20 130/76 (94) 94 11/30/18 18:00 115 18 103/61 (75) 92 11/30/18 17:00 Room Air 11/30/18 17:00 107 17 84/47 (59) 91 11/30/18 17:00 98.5 11/30/18 16:00 108 11/30/18 16:00 97.3 105 19 87/67 (74) 91 11/30/18 16:00 Nasal Cannula 2.0 11/30/18 15:00 110 21 90/52 (65) 90 11/30/18 14:00 109 27 103/53 (70) 97 11/30/18 13:00 113 17 94/52 (66) 89 Intake and Output 11/30/18 12/01/18 18:59 06:59 Intake Total 505 ml 470 ml Output Total 215 ml 435 ml Balance 290 ml 35 ml Intake Oral 120 ml 120 ml IV Total 385 ml 350 ml Output Urine Total 215 ml 435 ml # Voids 4 General Appearance: WD/WN HEENT: normocephalic Respiratory/Chest: chest wall non-tender, crackles/rales Cardiovascular: normal peripheral pulses, normal rate Abdomen: normal bowel sounds, soft, non tender Microbiology Date/Time Source Procedure Growth Status 11/28/18 20:30 Blood Blood Culture - Preliminary Staphylococcus Sp Coag Neg Resulted 11/28/18 20:15 Blood Blood Culture - Preliminary NO GROWTH AFTER 48 HOURS Resulted 11/28/18 20:58 Nasal Nares MRSA Culture - Final Staphylococcus Aureus - Mrsa Complete 11/28/18 20:58 Nasal Nares Influenza Types A,B Antigen (OG) - Final Complete 11/28/18 21:50 Urine,Clean Catch Urine Culture - Final Klebsiella Pneumoniae Complete 11/29/18 00:00 Leg Left Gram Stain - Final Resulted 11/29/18 00:00 Leg Left Wound Culture Pending Resulted 11/28/18 20:58 Rectum - Final NO CARBAPENEM-RESISTANT ENTEROBACTERI... Complete 11/28/18 20:58 Rectum VRE Culture - Final NO VANCOMYCIN RESISTANT ENTEROCOCCUS ... Complete Laboratory Tests 12/01/18 03:00: White Blood Count 9.6, Red Blood Count 4.42, Hemoglobin 13.5, Hematocrit 42.4, Mean Corpuscular Volume 96, Mean Corpuscular Hemoglobin 30.4, Mean Corpuscular Hemoglobin Concent 31.8L, Red Cell Distribution Width 14.3, Platelet Count 306, Mean Platelet Volume 5.9L, Neutrophils (%) (Auto) 80.8H, Lymphocytes (%) (Auto) 10.3L, Monocytes (%) (Auto) 8.4, Eosinophils (%) (Auto) 0.0, Basophils (%) (Auto ) 0.5, Sodium Level 152H, Potassium Level 3.6, Chloride Level 113H, Carbon Dioxide Level 30, Anion Gap 9, Blood Urea Nitrogen 38H, Creatinine 0.6, Estimat Glomerular Filtration Rate , Glucose Level 214H, Calcium Level 10.3H, Phosphorus Level 1.8L, Magnesium Level 2.0, Total Bilirubin 0.4, Aspartate Amino Transf (AST/SGOT) 14L, Alanine Aminotransferase (ALT/SGPT) 11L, Alkaline Phosphatase 74, Total Protein 7.4, Albumin 2.8L, Globulin 4.6, Albumin/Globulin Ratio 0.6L Current Medications Medications (Trade) Dose Ordered Sig/Harshil Route PRN Reason Start Time Stop Time Status Last Admin Dose Admin Acetaminophen (Tylenol) 650 mg Q4H PRN ORAL FEVER 12/01/18 06:45 12/28/18 22:44 Albuterol/ Ipratropium (Albuterol/ Ipratropium) 3 ml Q4H PRN HHN Shortness of Breath 12/01/18 06:45 12/03/18 22:44 Dextrose (Dextrose 50%) 25 ml Q30M PRN IV Hypoglycemia 12/01/18 06:15 12/29/18 10:04 Dextrose (Dextrose 50%) 50 ml Q30M PRN IV hypoglycemia 12/01/18 06:15 12/29/18 10:14 Dextrose/Sodium Chloride 1,000 ml @ 35 mls/hr Q24H IV 12/01/18 05:45 12/29/18 14:50 Digoxin (Lanoxin) 0.25 mg DAILY IVP 12/01/18 09:00 12/29/18 08:59 12/01/18 08:15 Diltiazem HCl (Cardizem) 30 mg EVERY 8 HOURS ORAL 12/01/18 06:00 12/30/18 21:59 12/01/18 06:46 Enalaprilat (Vasotec) 2.5 mg Q6H PRN IV sbp more than 160 12/01/18 10:45 12/28/18 22:44 Heparin Sodium (Porcine) (Heparin 5000 units/ml) 5,000 units EVERY 12 HOURS SUBQ 12/01/18 09:00 12/29/18 20:59 12/01/18 08:15 Insulin Aspart (NovoLOG) BEFORE MEALS AND HS SUBQ 12/01/18 06:30 12/29/18 11:29 12/01/18 11:24 Metoprolol Succinate (Toprol XL) 25 mg DAILY ORAL 12/01/18 09:00 12/30/18 08:59 12/01/18 08:14 Pantoprazole (Protonix) 40 mg DAILY IVP 12/01/18 09:00 12/29/18 08:59 12/01/18 08:15 Potassium Chloride 100 ml @ 100 mls/hr Q1HR IVPB 12/01/18 10:00 12/01/18 13:59 12/01/18 11:05 Trazodone HCl (Desyrel) 100 mg BEDTIME ORAL 12/01/18 21:00 12/29/18 20:59 Corey Salmon MD Dec 01, 2018 12:11
--- NOTE | 2018-12-01 14:04 | NUR ---
NURSE NOTES: [facility] 1500-1530hrs, spoke cynthia fan
--- NOTE | 2018-12-01 15:00 | NUR ---
NURSE NOTES: pt left in stable condition, iv on right hand and right ac removed no bleeding. all belongings with the pt daughter chip. rx faxed to [facility] in [place] , daughter confirmed pharmacy received rx.
--- NOTE | 2018-12-01 15:09 | Cardiac Electrophysiology PN ---
Assessment/Plan Assessment/Plan 1. Atrial fibrillation with rapid ventricular response. On Dig 0.25 and Toprol 25 daily Dig level in am. Dig level was 2 on 11/29/18. 2. Hypertension, on metoprolol. 3. Shortness of breath. Echocardiogram showed ejection fraction of 65% with no left ventricular hypertrophy. 4. Respiratory failure, on BiPAP per Dr. Salmon. Family states that the patient is do not intubate. 5. Diabetes, on metformin and Invokana. Subjective Subjective Comfortable in NAD. More awake. Objective Last 24 Hour Vital Signs Date Time Temp Pulse Resp B/P (MAP) Pulse Ox O2 Delivery O2 Flow Rate FiO2 12/01/18 13:12 98 133/78 12/01/18 12:56 98.0 98 20 133/78 (96) 98 12/01/18 11:31 98 12/01/18 09:15 98.0 100 20 128/80 (96) 98 12/01/18 09:00 98.0 95 20 130/89 (103) 86 12/01/18 08:15 99 12/01/18 08:14 99 140/89 12/01/18 08:06 97 Room Air 12/01/18 08:06 Room Air 12/01/18 07:38 104 12/01/18 07:20 98.0 99 20 140/89 (106) 98 12/01/18 07:16 Room Air 12/01/18 06:46 98 154/95 12/01/18 06:46 98 154/95 (114) 98 12/01/18 05:00 95 20 130/72 (91) 98 12/01/18 04:00 96 12/01/18 04:00 98.0 97 19 135/65 (88) 98 12/01/18 04:00 Room Air 12/01/18 03:00 97 18 133/74 (93) 98 12/01/18 02:00 105 18 141/56 (84) 98 12/01/18 01:00 104 18 133/77 (95) 98 12/01/18 00:00 97.8 103 18 121/73 (89) 96 12/01/18 00:00 101 12/01/18 00:00 Room Air 11/30/18 23:00 101 16 135/79 (97) 96 11/30/18 22:00 104 16 123/70 (87) 96 11/30/18 21:37 105 161/80 11/30/18 21:00 103 17 140/78 (98) 96 11/30/18 20:00 104 11/30/18 20:00 98.0 103 16 131/77 (95) 94 11/30/18 20:00 Room Air 11/30/18 19:07 114 18 Room Air 11/30/18 19:06 Room Air 11/30/18 19:06 94 Room Air 11/30/18 19:00 113 20 130/76 (94) 94 11/30/18 18:00 115 18 103/61 (75) 92 11/30/18 17:00 Room Air 11/30/18 17:00 107 17 84/47 (59) 91 11/30/18 17:00 98.5 11/30/18 16:00 108 11/30/18 16:00 97.3 105 19 87/67 (74) 91 11/30/18 16:00 Nasal Cannula 2.0 Intake and Output 11/30/18 12/01/18 19:00 07:00 Intake Total 505 ml 435 ml Output Total 175 ml 435 ml Balance 330 ml 0 ml Intake Oral 120 ml 120 ml IV Total 385 ml 315 ml Output Urine Total 175 ml 435 ml # Voids 4 Laboratory Tests Test 12/01/18 03:00 White Blood Count 9.6 K/UL (4.8-10.8) Red Blood Count 4.42 M/UL (4.20-5.40) Hemoglobin 13.5 G/DL (12.0-16.0) Hematocrit 42.4 % (37.0-47.0) Mean Corpuscular Volume 96 FL (80-99) Mean Corpuscular Hemoglobin 30.4 PG (27.0-31.0) Mean Corpuscular Hemoglobin Concent 31.8 G/DL (32.0-36.0) L Red Cell Distribution Width 14.3 % (11.6-14.8) Platelet Count 306 K/UL (150-450) Mean Platelet Volume 5.9 FL (6.5-10.1) L Neutrophils (%) (Auto) 80.8 % (45.0-75.0) H Lymphocytes (%) (Auto) 10.3 % (20.0-45.0) L Monocytes (%) (Auto) 8.4 % (1.0-10.0) Eosinophils (%) (Auto) 0.0 % (0.0-3.0) Basophils (%) (Auto) 0.5 % (0.0-2.0) Sodium Level 152 MMOL/L (136-145) H Potassium Level 3.6 MMOL/L (3.5-5.1) Chloride Level 113 MMOL/L (98-107) H Carbon Dioxide Level 30 MMOL/L (21-32) Anion Gap 9 mmol/L (5-15) Blood Urea Nitrogen 38 mg/dL (7-18) H Creatinine 0.6 MG/DL (0.55-1.30) Estimat Glomerular Filtration Rate mL/min (>60) Glucose Level 214 MG/DL (74-106) H Calcium Level 10.3 MG/DL (8.5-10.1) H Phosphorus Level 1.8 MG/DL (2.5-4.9) L Magnesium Level 2.0 MG/DL (1.8-2.4) Total Bilirubin 0.4 MG/DL (0.2-1.0) Aspartate Amino Transf (AST/SGOT) 14 U/L (15-37) L Alanine Aminotransferase (ALT/SGPT) 11 U/L (12-78) L Alkaline Phosphatase 74 U/L (46-116) Total Protein 7.4 G/DL (6.4-8.2) Albumin 2.8 G/DL (3.4-5.0) L Globulin 4.6 g/dL Albumin/Globulin Ratio 0.6 (1.0-2.7) L Microbiology Date/Time Source Procedure Growth Status 11/28/18 20:30 Blood Blood Culture - Preliminary Staphylococcus Sp Coag Neg Resulted 11/28/18 20:15 Blood Blood Culture - Preliminary NO GROWTH AFTER 48 HOURS Resulted 11/28/18 20:58 Nasal Nares MRSA Culture - Final Staphylococcus Aureus - Mrsa Complete 11/28/18 20:58 Nasal Nares Influenza Types A,B Antigen (OG) - Final Complete 11/28/18 21:50 Urine,Clean Catch Urine Culture - Final Klebsiella Pneumoniae Complete 11/29/18 00:00 Leg Left Gram Stain - Final Resulted 11/29/18 00:00 Wound Culture - Preliminary Staphylococcus Aureus Resulted 11/28/18 20:58 Rectum - Final NO CARBAPENEM-RESISTANT ENTEROBACTERI... Complete 11/28/18 20:58 Rectum VRE Culture - Final NO VANCOMYCIN RESISTANT ENTEROCOCCUS ... Complete Objective HEENT: mild JVD. LUNGS: Have coarse rhonchi. CARDIOVASCULAR: Shows irregular S1 and S2 with no gallop or murmur. ABDOMEN: Soft. EXTREMITIES: Have no pitting edema. Cristi Nova MD Dec 01, 2018 15:09
--- NOTE | 2018-12-01 18:25 | Internal Med Progress Note ---
Subjective Physician Name Selwyn Stein Attending Physician Selwyn Stein MD Allergies: Coded Allergies: No Known Allergies (Unverified , 11/28/18) Subjective Awake, responsive, no acute distress. Objective Last Vital Signs Date Time Temp Pulse Resp B/P (MAP) Pulse Ox O2 Delivery O2 Flow Rate FiO2 12/01/18 13:12 98 133/78 12/01/18 12:56 98.0 20 98 12/01/18 08:06 Room Air 11/30/18 16:00 2.0 11/30/18 08:57 28 Laboratory Tests Test 12/01/18 03:00 White Blood Count 9.6 K/UL (4.8-10.8) Red Blood Count 4.42 M/UL (4.20-5.40) Hemoglobin 13.5 G/DL (12.0-16.0) Hematocrit 42.4 % (37.0-47.0) Mean Corpuscular Volume 96 FL (80-99) Mean Corpuscular Hemoglobin 30.4 PG (27.0-31.0) Mean Corpuscular Hemoglobin Concent 31.8 G/DL (32.0-36.0) L Red Cell Distribution Width 14.3 % (11.6-14.8) Platelet Count 306 K/UL (150-450) Mean Platelet Volume 5.9 FL (6.5-10.1) L Neutrophils (%) (Auto) 80.8 % (45.0-75.0) H Lymphocytes (%) (Auto) 10.3 % (20.0-45.0) L Monocytes (%) (Auto) 8.4 % (1.0-10.0) Eosinophils (%) (Auto) 0.0 % (0.0-3.0) Basophils (%) (Auto) 0.5 % (0.0-2.0) Sodium Level 152 MMOL/L (136-145) H Potassium Level 3.6 MMOL/L (3.5-5.1) Chloride Level 113 MMOL/L (98-107) H Carbon Dioxide Level 30 MMOL/L (21-32) Anion Gap 9 mmol/L (5-15) Blood Urea Nitrogen 38 mg/dL (7-18) H Creatinine 0.6 MG/DL (0.55-1.30) Estimat Glomerular Filtration Rate mL/min (>60) Glucose Level 214 MG/DL (74-106) H Calcium Level 10.3 MG/DL (8.5-10.1) H Phosphorus Level 1.8 MG/DL (2.5-4.9) L Magnesium Level 2.0 MG/DL (1.8-2.4) Total Bilirubin 0.4 MG/DL (0.2-1.0) Aspartate Amino Transf (AST/SGOT) 14 U/L (15-37) L Alanine Aminotransferase (ALT/SGPT) 11 U/L (12-78) L Alkaline Phosphatase 74 U/L (46-116) Total Protein 7.4 G/DL (6.4-8.2) Albumin 2.8 G/DL (3.4-5.0) L Globulin 4.6 g/dL Albumin/Globulin Ratio 0.6 (1.0-2.7) L Microbiology Date/Time Source Procedure Growth Status 11/28/18 20:30 Blood Blood Culture - Preliminary Staphylococcus Sp Coag Neg Resulted 11/28/18 20:15 Blood Blood Culture - Preliminary NO GROWTH AFTER 48 HOURS Resulted 11/28/18 20:58 Nasal Nares MRSA Culture - Final Staphylococcus Aureus - Mrsa Complete 11/28/18 20:58 Nasal Nares Influenza Types A,B Antigen (OG) - Final Complete 11/28/18 21:50 Urine,Clean Catch Urine Culture - Final Klebsiella Pneumoniae Complete 11/29/18 00:00 Leg Left Gram Stain - Final Resulted 11/29/18 00:00 Wound Culture - Preliminary Staphylococcus Aureus Resulted 11/28/18 20:58 Rectum - Final NO CARBAPENEM-RESISTANT ENTEROBACTERI... Complete 11/28/18 20:58 Rectum VRE Culture - Final NO VANCOMYCIN RESISTANT ENTEROCOCCUS ... Complete Intake and Output 11/30/18 12/01/18 19:00 07:00 Intake Total 505 ml 435 ml Output Total 175 ml 435 ml Balance 330 ml 0 ml Intake Oral 120 ml 120 ml IV Total 385 ml 315 ml Output Urine Total 175 ml 435 ml # Voids 4 Objective General: No acute distress, awake and positive, HEENT: NCAT, sclera anicteric, PERRL, EOMI. Neck: Supple, no significant jugular venous distention, Lungs: Coarse breath sounds, decreased air in the bases, no Wheeze or Rales. Heart: Irregular rate and rhythm, normal S1/S2, no murmur Abdomen: soft, nontender, nondistended. Normoactive bowel sounds. / Rectal: Refused and deferred. Extremities: No Cyanosis , clubbing or edema. Neuro: A&O x 2, Able to move all extremities slowly Assessment/Plan Assessment/Plan (1) Acute respiratory failure (2) Hypertensive emergency (3) Rapid atrial fibrillation (4) Severe protein-calorie malnutrition (5) At high risk for aspiration (6) Dementia (7) Alzheimer's dementia (8) Venous stasis ulcer (9) Debility (10) hyponatremia. Assessment/Plan DC home today. Follow-up with Dr. Thorpe. Selwyn Stein MD Dec 01, 2018 18:25
[2018-12-01] MEDS ORDERED: TraZODone 100mg tab ORAL SCH (21:00)
[2018-12-02] MEDS ORDERED: Digoxin 0.125mg tab ORAL SCH (09:00)
--- NOTE | 2018-12-03 08:53 | Discharge Summary ---
Discharge Summary Discharge Summary _ DATE OF ADMISSION : 11/28/2018 DATE OF DISCHARGE : 12/01/2018 DISCHARGE BY:Dr Stein REASON FOR ADMISSION: 87 years old female with past medical history of hypertension, diabetes, chronic venous stasis ulcers bilateral lower extremity, Alzheimer dementia, presented to the emergency department with shortness of breath. Patient noted to have increased respiratory distress and was placed on supplemental oxygen by paramedics. Upon arrival to the emergency department patient was tachycardic and hypoxic, requiring 100% nonrebreathing mask. Blood pressure was elevated 173/116. Laboratory workup revealed leukocytosis WBC 14.9, stable hemoglobin and hematocrit. Stable electrolytes. BUN 27, creatinine 0.8. Glucose 267. Troponin - 0.059. Pro BNP 1974. EKG revealed atrial fibrillation with rapid ventricular response. Chest x-ray demonstrated left perihilar and basilar consolidation. Diffuse interstitial disease bilaterally, acuity undetermined. Urinalysis revealed +4 glucose, +3 ketones, +2 protein, pyuria and some bacteria In emergency department patient started on breathing treatment with bronchodilator via hand-held nebulizer. Patient was given IV steroids. Patient was started on the BiPAP. ABG was stable after placement on BiPAP. Patient was admitted for further management. CONSULTANTS: Cardiology Pulmonology/critical care Dr. Salmon [facility] COURSE: Patient admitted to telemetry floor. admissions gate attendant followed. Heart rate initially was controlled with Cardizem. Digoxin x1 given. Patient started on empiric antibiotic for possible UTI. Nitroglycerin was on board as needed Heart rate was further controlled with digoxin and beta-renny. Heart rate stabilized. Digoxin level therapeutic. Patient spontaneously converted to sinus rhythm and remained in sinus rhythm until discharge. Blood pressure was managed with beta-renny. Blood pressure stabilized. Echocardiogram revealed preserved ejection fraction of 65% with no left ventricular hypertrophy. No evidence of wall motion abnormality. Right ventricular systolic pressure of 40 consistent with mild pulmonary hypertension Lipid panel stable. TSH within normal limits. Patient was initially on the BiPAP. BiPAP settings titrated. Pulmonary toilet provided. Patient was able to be weaned from BiPAP to oxygen via nasal cannula and then to room air. Pulse oximetry was stable on room air prior to discharge.. DVT prophylaxis provided. Follow-up chest x-ray revealed S\Shifting infiltrates/edema, with improvement of disease on the left, slight worsening on the right. Bedside swallow evaluation revealed dysphagia and high aspiration risk. Diet provided as per speech therapist recommendation with S\strict aspiration precautions. Protein supplement implemented in plan of care as per registered dietitian recommendation Patient was continue with Unna boots for treatment of venous stasis, as before at home. GI prophylaxis provided. Potassium was replaced. Blood sugar was managed with sliding scale of insulin. Rapid influenza screen test was negative. Urine culture revealed Klebsiella pneumonia with colony count only 70-80. No urinary complaints. Patient likely had pyuria without evidence of UTI. Initial leukocytosis resolved. No fevers. Pulse oximetry was stable on room air. Blood pressure stabilized. Patient remained in sinus rhythm. Patient clinically stabilized and was ready for discharge home with home health services to follow. FINAL DIAGNOSIS Acute respiratory failure, requiring BiPAP Hypertensive emergency Atrial fibrillation with rapid ventricular response At high risk for aspiration Severe protein calorie malnutrition Venous stasis ulcers bilateral lower extremity Alzheimer's dementia DISCHARGE MEDICATIONS: See Medication Reconciliation list. DISCHARGE INSTRUCTIONS: Patient was discharged home with home health services. Follow up with primary care provider in one week. I have been assigned to dictate discharge summary for this account. I was not involved in the patient's management. Jessica Mullen TECHNICAL SUPPORT INTERN Dec 03, 2018 08:53
== END 2018-12-01 15:20 | disposition home health service (06) | DRG 189 ==
LOC: EDBD 20:10 → EDBEDREQSVC 21:40 → EMR 21:51 → ICU 21:57 → EDBEDREQ 22:50 → 2E 12-01 05:42
PROC: 5A09457 Assistance with Respiratory Ventilation, 24-96 Consecutive Hours, Continuous Positive Airway Pressure (ICD-10-PCS; principal; 2018-11-28)
DX: J96.00 Acute respiratory failure, unspecified whether with hypoxia or hypercapnia (principal); E43 Unspecified severe protein-calorie malnutrition; I16.1 Hypertensive emergency; Z68.22 Body mass index [BMI] 22.0-22.9, adult; E11.9 Type 2 diabetes mellitus without complications; G30.9 Alzheimer's disease, unspecified; F02.80 Dementia in other diseases classified elsewhere, unspecified severity, without behavioral disturbance, psychotic disturbance, mood disturbance, and anxiety; Z79.84 Long term (current) use of oral hypoglycemic drugs; Z79.82 Long term (current) use of aspirin; I83.009 Varicose veins of unspecified lower extremity with ulcer of unspecified site; I27.20 Pulmonary hypertension, unspecified
CPT/HCPCS: 36415; 36600; 71045; 80053; 80061; 80162; 81003; 82550; 82553; 82803; 82962; 83605; 83735; 83880; 84100; 84443; 84484; 85025; 85610; 85730; 86140; 86710; 87040; 87070; 87081; 87086; 87181; 87205; 93005; 93306; 94640; 94660; 94664; 94760; 96365; 96375; 99291; J1815; J7620